=== PATIENT | female | born 1960 | race Caucasian/White ===

== ENCOUNTER → 2016-12-04 | Outpatient (CLI) | payer BC ==
--- NOTE | 2016-12-04 10:30 | MM ---
Reason for exam: additional evaluation requested from prior study. Last mammogram was performed 5 months ago. History: Patient is postmenopausal and history of other cancer. US discontinued breast core RT of the right breast, August 22, 2016. Took estrogen for 9 years 1 month beginning at age 40. Took progesterone for 9 years 1 month beginning at age 40. Physical Findings: Nurse did not find any significant physical abnormalities on exam. MG 3D Diag Mammo W/Cad RT CC and MLO view(s) were taken of the right breast. Prior study comparison: July 15, 2016, bilateral MG 3d diag mammo w/cad ANNA. September 14, 2015, bilateral MG 3d screening mammo w/cad. July 18, 2014, bilateral MG screening mammo w CAD. June 21, 2013, bilateral digital screening mammo w/CAD. There are scattered fibroglandular densities. There is chronic nodularity in the right breast. Some nodularity in the subareolar right MLO view is circumscribed and appears more prominent but has overall benign features. These results were verbally communicated with the patient and result sheet given to the patient on 12/04/16. ASSESSMENT: Incomplete: need additional imaging evaluation, BI-RAD 0 RECOMMENDATION: Ultrasound of the right breast. NOMAN
--- NOTE | 2016-12-04 10:33 | USB ---
Reason for exam: follow-up at short interval from prior study. History: Patient is postmenopausal and history of other cancer. US discontinued breast core RT of the right breast, August 22, 2016. Took estrogen for 9 years 1 month beginning at age 40. Took progesterone for 9 years 1 month beginning at age 40. US Breast RT Right breast ultrasound demonstrates a 1.4 x 1.5 x 0.7cm lipoma at 5 o'clock versus 1.4 x 1.5 x 0.8cm, stable and a 0.7 x 0.7 x 0.4cm probable node, hypoechoic with vascular hilum at 10 o'clock versus 7 x 7 x 5mm previously, probably corresponding to the mammographic lymph node. A 6 month follow up is recommended. These results were verbally communicated with the patient and result sheet given to the patient on 12/04/16. ASSESSMENT: Probably benign, BI-RAD 3 RECOMMENDATION: Follow-up diagnostic mammogram of both breasts in 6 months.
== END | disposition home or self-care (01) ==
LOC: RADMAMWWP 08:51
PROVIDERS: ATTEND Obstetrics & Gynecology
DX: R92.8 Other abnormal and inconclusive findings on diagnostic imaging of breast (principal)
CPT/HCPCS: 76641; G0206; G0279

== ENCOUNTER → 2017-06-19 | Outpatient (CLI) | payer BC ==
--- NOTE | 2017-06-19 14:33 | MM ---
Reason for exam: follow-up at short interval from prior study. Last mammogram was performed 7 months ago. History: Patient is postmenopausal and history of other cancer. US discontinued breast core RT of the right breast, August 22, 2016. Took estrogen for 9 years 1 month beginning at age 40. Took progesterone for 9 years 1 month beginning at age 40. Physical Findings: Nurse did not find any significant physical abnormalities on exam. MG 3D Diag Mammo W/Cad ANNA Bilateral CC and MLO view(s) were taken. Prior study comparison: December 04, 2016, right breast MG 3d diag mammo w/cad RT. July 15, 2016, bilateral MG 3d diag mammo w/cad ANNA. The breast tissue is heterogeneously dense. This may lower the sensitivity of mammography. Prominent ducts right retroareolar region. No suspicious nodules. No significant new findings when compared with previous films. These results were verbally communicated with the patient and result sheet given to the patient on 06/19/17. ASSESSMENT: Benign, BI-RAD 2 RECOMMENDATION: Routine screening mammogram of both breasts in 1 year.
== END | disposition home or self-care (01) ==
LOC: RADMAMWWP 13:14
PROVIDERS: ATTEND Obstetrics & Gynecology
DX: R92.8 Other abnormal and inconclusive findings on diagnostic imaging of breast (principal)
CPT/HCPCS: G0204; G0279

== ENCOUNTER → 2018-06-22 | Outpatient (CLI) | payer BC ==
--- NOTE | 2018-06-22 14:29 | US ---
EXAMINATION TYPE: US thyroid st tissue head/neck DATE OF EXAM: 06/22/2018 COMPARISON: US 07/15/2016 CLINICAL HISTORY: E04.1 Thyroid nodule. GLAND SIZE: Right Lobe: 3.3 x 1.1 x 0.9 cm Overall Parenchyma: homogenous Left Lobe: 3.3 x 0.8 x 1.1 cm Overall Parenchyma: homogeneous Isthmus Thickness: 0.3 cm NODULES RIGHT: # of nodules measured on right: 0 LEFT: # of nodules measured on left: 0 ISTHMUS: # of nodules measured in the isthmus: 0 Bilateral neck scanned, no evidence of lymphadenopathy. IMPRESSION: No distinct abnormalities appreciated at this time.
== END | disposition home or self-care (01) ==
LOC: RADUSWWP 13:08
PROVIDERS: ATTEND Family Medicine
DX: E04.1 Nontoxic single thyroid nodule (principal)
CPT/HCPCS: 76536

== ENCOUNTER → 2018-06-23 | Outpatient (CLI) | payer BC ==
--- NOTE | 2018-06-25 09:27 | MM ---
Reason for exam: screening (asymptomatic). Last mammogram was performed 1 year ago. History: Patient is postmenopausal and history of other cancer. US discontinued breast core RT of the right breast, August 22, 2016. Took estrogen for 9 years 1 month beginning at age 40. Took progesterone for 9 years 1 month beginning at age 40. Physical Findings: A clinical breast exam by your physician is recommended on an annual basis and results should be correlated with mammographic findings. MG 3D Screening Mammo W/Cad Bilateral CC and MLO view(s) were taken. Prior study comparison: June 19, 2017, bilateral MG 3d diag mammo w/cad ANNA. December 04, 2016, right breast MG 3d diag mammo w/cad RT. The breast tissue is heterogeneously dense. This may lower the sensitivity of mammography. No significant changes when compared with prior studies. ASSESSMENT: Benign, BI-RAD 2 RECOMMENDATION: Routine screening mammogram of both breasts in 1 year.
== END | disposition home or self-care (01) ==
LOC: RADMAMWWP 16:31
PROVIDERS: ATTEND Obstetrics & Gynecology
DX: Z12.31 Encounter for screening mammogram for malignant neoplasm of breast (principal)
CPT/HCPCS: 77063; 77067

== ENCOUNTER 2018-08-28 13:17 | Emergency (ER) | payer OTHER, BC ==
[2018-08-28 13:32] VITALS: PULSE 79; RESP 18; TEMP 98.3
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
[2018-08-28 16:10] VITALS: BP 164/89
== END 2018-08-28 16:17 | disposition home or self-care (01) ==
LOC: EC 13:17
DX: M25.512 Pain in left shoulder (principal); M25.522 Pain in left elbow; M79.602 Pain in left arm; G25.81 Restless legs syndrome; F32.9 Major depressive disorder, single episode, unspecified; F41.9 Anxiety disorder, unspecified; Z87.891 Personal history of nicotine dependence; Z79.899 Other long term (current) drug therapy; V43.52XA Car driver injured in collision with other type car in traffic accident, initial encounter; Y93.89 Activity, other specified; Y92.410 Unspecified street and highway as the place of occurrence of the external cause
CPT/HCPCS: 71045; 99284

== ENCOUNTER → 2019-10-13 | Outpatient (CLI) | payer BC ==
--- NOTE | 2019-10-13 14:42 | BD ---
EXAMINATION TYPE: Axial Bone Density DATE OF EXAM: 10/13/2019 COMPARISON: DEXA bone scan July 15, 2016. CLINICAL HISTORY: Postmenopausal female. Height: 5 FT 3 1/2 IN Weight: 206 FRAX RISK QUESTIONS: Alcohol (3 or more units per day): NO Family History (Parent hip fracture): NO Glucocorticoids (More than 3mos): NO (Ex: prednisone, prednisolone, methylprednisolone, dexamethasone, and hydrocortisone). History of Fracture in Adulthood: NO Secondary Osteoporosis: 1. Type 1 Diabetes: NO 2. Hyperthyroidism: NO 3. Menopause before 45: YES 4. Malnutrition: NO 5. Chronic liver disease: NO Rheumatoid Arthritis: NO Current Tobacco Use: NO RISK FACTORS HISTORY OF: Postmenopausal woman: AGE 41 Take estrogen and/or progesterone medications: TOOK HRT FROM AGE [age] NO LONGER TAKES MEDICATIONS: Additional Medications: EFFEXOR, XANAX, AMBIEN, FLEXERIL REQUIP Additional History: EXAM MEASUREMENTS: Bone mineral densitometry was performed using the [email or web address] System. Bone mineral density as measured about the Lumbar spine is: ----- L1-L4(G/cm2): 1.071 T Score Values are as follows: ----- L2: -0.4 ----- L3: -0.4 ----- L4: -1.3 ----- L1-L4: -0.9 Bone mineral density has: DECREASED -3.5 % since study of: 2015 Bone mineral density about the R hip (g/cm2): 0.945 Bone mineral density about the L hip (g/cm2): 0.903 T Score values are as follows: -----R Neck: -0.7 -----L Neck: -1.0 -----R Total: 0.5 -----L Total: 0.9 Bone mineral density has: DECREASED -0.2 % since study of: 2015 IMPRESSION: Normal (Values between +1 and -1 indicate normal bone mass) range remains present. Consider repeatin g this study in 5 years or sooner if there is some new clinical indication. NOTE: T-SCORE=SD OF THE YOUNG ADULT MEAN.
--- NOTE | 2019-10-14 13:29 | MM ---
Reason for exam: screening (asymptomatic). Last mammogram was performed 1 year and 4 months ago. History: Patient is postmenopausal and history of other cancer. US discontinued breast core RT of the right breast, August 22, 2016. Took estrogen for 9 years 1 month beginning at age 40. Took progesterone for 9 years 1 month beginning at age 40. Physical Findings: A clinical breast exam by your physician is recommended on an annual basis and results should be correlated with mammographic findings. MG 3D Screening Mammo W/Cad Bilateral CC and MLO view(s) were taken. Prior study comparison: June 23, 2018, bilateral MG 3d screening mammo w/cad. June 19, 2017, bilateral MG 3d diag mammo w/cad ANNA. There are scattered fibroglandular densities. No suspicious abnormality. No significant changes when compared with prior studies. ASSESSMENT: Negative, BI-RAD 1 RECOMMENDATION: Routine screening mammogram of both breasts in 1 year.
== END | disposition home or self-care (01) ==
LOC: RADMAMWWP 13:07
PROVIDERS: ATTEND Family Medicine
DX: Z12.39 Encounter for other screening for malignant neoplasm of breast (principal); Z78.0 Asymptomatic menopausal state
CPT/HCPCS: 77063; 77067; 77080

== ENCOUNTER → 2020-06-29 | Outpatient (CLI) | payer BC ==
--- NOTE | 2020-06-29 13:51 | P.STRESS ---
- Stress Test Note Stress Test Results/Findings: Exam Performed: stress echo exercise Exam Date: 06/29/20 Reason for Exam: Chest pain Height: 5 ft 4 in Weight: 216 kg Protocol: Stress Echo Stage: 3 Duration of Exercise: 7:43 Resting Heart Rate: 90 Resting Blood Pressure: 139/54 Maximum Achieved Heart Rate: 150 Maximum Achieved Blood Pressure: 203/74 85% PMHR: 134 100% PMHR: 158 METS: 8.9 Technologist Comment: Stress Test Results/Findings: Patient underwent exercise stress echo with a Thai protocol treadmill stress test. Patient exercised into Stage 3 for a total of 7 minutes and 43 seconds reaching a total of 8.9 METS. Patient's maximum heart rate was 150 which represented 95 % age-predicted maximum heart rate. Stress EKG portion: At baseline patient's EKG showed normal sinus rhythm, normal axis, nonspecific T-wave flattening in aVL, mild ST depressions in inferior leads. At peak exercise, EKG showed accentuation of inferior ST depressions with [address] depressions in 3 and aVF, [address] depressions in V5 V6. Stress echo portion: 2-D echocardiogram was performed in the parasternal long, personal short, apical 2 and apical four-chamber views at rest, peak exercise and in recovery. At baseline, echocardiogram showed left ventricular ejection fraction 55 % without wall motion abnormalities. With peak exercise, echocardiogram shows improvement in left ventricular ejection fraction, increase contractility, decrease in left ventricular dimension without wall motion abnormalities consistent with a normal response to exercise. Conclusions: 1. Nonspecific EKG response and normal echo response to exercise without evidence of inducible ischemia. 2. Fair exercise capacity.
== END | disposition home or self-care (01) ==
LOC: RADNMMAIN 11:06
PROVIDERS: ATTEND Family Medicine
DX: R07.89 Other chest pain (principal)
CPT/HCPCS: 93351

== ENCOUNTER → 2021-01-31 | Outpatient (CLI) | payer BC ==
--- NOTE | 2021-01-31 12:24 | XR ---
EXAMINATION TYPE: XR calcaneus 2V BILATERAL DATE OF EXAM: 01/31/2021 COMPARISON: None HISTORY: Bilateral heel pain greater on right TECHNIQUE: Calcanei are examined in 2 projections each FINDINGS: Left calcaneus: Plantar and Achilles tendon calcaneal heel spurs are present. Boehler's angle is pres erved. No acute fracture or dislocation is evident. No suspicious cortical erosions are evident. Right calcaneus: There is a large Achilles tendon calcaneal heel spur. Small plantar calcaneal heel s pur may be present. Boehler's angle is preserved. Joint spaces are preserved. No acute fracture or di slocation is evident. No cortical erosions are evident. IMPRESSION: 1. Bilateral calcaneal heel spurs discussed above
== END | disposition home or self-care (01) ==
LOC: RADXRMAIN 11:42
PROVIDERS: ATTEND Nurse Practitioner Family
DX: M77.31 Calcaneal spur, right foot (principal); M77.32 Calcaneal spur, left foot

== ENCOUNTER 2021-02-01 14:56 | Emergency (ER) | payer BC ==
[2021-02-01 15:43] LABS: ALT 37 U/L (4-34); AST 42 U/L (14-36); African American GFR (CKD) >90 (>60 ml/min/1.73 sqM); Albumin 4.5 g/dL (3.5-5.0); Alkaline Phosphatase 89 U/L (38-126); Anion Gap 9 mmol/L; Blood Urea Nitrogen 7 mg/dL (7-17); Calcium 9.4 mg/dL (8.4-10.2); Carbon Dioxide 25 mmol/L (22-30); Chloride 103 mmol/L (98-107); Glucose 107 mg/dL (74-99); Magnesium 2.1 mg/dL (1.6-2.3); Non-African American GFR(CKD) >90 (>60 ml/min/1.73 sqM); Potassium 3.7 mmol/L (3.5-5.1); Sodium 137 mmol/L (137-145); Total Bilirubin 0.5 mg/dL (0.2-1.3); Total Protein 7.5 g/dL (6.3-8.2)
[2021-02-01 15:46] LABS: D-Dimer 0.31 mg/L FEU (<0.60); INR 0.9 (<1.2); Prothrombin Time 10.1 sec (9.0-12.0)
--- NOTE | 2021-02-01 15:53 | XR ---
EXAMINATION TYPE: XR chest 2V DATE OF EXAM: 02/01/2021 COMPARISON: 08/28/2018 HISTORY: 60-year-old female with chest pain TECHNIQUE: PA and lateral views FINDINGS: The cardiomediastinal silhouette, aorta, and pulmonary vasculature are within normal limits. Mild int erstitial prominence as a chronic appearance. No consolidation or pleural effusion. IMPRESSION: Chronic changes without acute cardiopulmonary process.
[2021-02-01 16:07] LABS: Basophils % (A) 1 %; Eosinophils # (A) 0.1 k/uL (0-0.7); Eosinophils % (A) 1 %; HCT 45.8 % (34.0-46.0); HGB 15.8 gm/dL (11.4-16.0); Lymphocytes % (A) 33 %; MCH 29.3 pg (25.0-35.0); MCHC 34.5 g/dL (31.0-37.0); MCV 84.8 fL (80.0-100.0); Mean Platelet Volume 7.5; Monocytes # (A) 0.5 k/uL (0-1.0); Monocytes % (A) 8 %; Neutrophils # (A) 3.5 k/uL (1.3-7.7); Neutrophils % (A) 56 %; Platelet Count 242 k/uL (150-450); RBC 5.41 m/uL (3.80-5.40); RDW 13.9 % (11.5-15.5); WBC 6.2 k/uL (3.8-10.6)
--- NOTE | 2021-02-01 16:14 | ED ---
General Adult HPI - General Chief complaint: Chest Pain Stated complaint: Chest Pain, chest tightness, Time Seen by Provider: 02/01/21 15:05 Source: patient, RN notes reviewed, old records reviewed Mode of arrival: wheelchair Limitations: no limitations - History of Present Illness Initial comments: 60-year-old female presenting with an episode of right-sided chest pain with associated jaw pain and right arm pain. Patient has no previous history of c oronary artery disease. No history of DVT or PE. Symptoms have resolved at the time my evaluation. This episode lasted approximately 15 minutes 1 hour prior to arrival. Patient denies associated vomiting or diaphoresis. She has been otherwise well. No cough or fever. - Related Data Home Medications Medication Instructions Recorded Confirmed Venlafaxine HCl [Effexor XR] 150 mg PO HS 08/10/16 02/01/21 ALPRAZolam [Xanax] 0.5 mg PO TID 02/01/21 02/01/21 Albuterol Sulfate [Ventolin HFA] 2 puff INHALATION RT-Q6H PRN 02/01/21 02/01/21 Cyclobenzaprine [Flexeril] 10 mg PO HS 02/01/21 02/01/21 Ibuprofen [Advil] 400 mg PO Q8HR PRN 02/01/21 02/01/21 Zolpidem [Ambien] 10 mg PO HS 02/01/21 02/01/21 rOPINIRole HCL [Requip] 1 mg PO HS 02/01/21 02/01/21 Allergies Allergy/AdvReac Type Severity Reaction Status Date / Time No Known Allergies Allergy Verified 02/01/21 16:43 Review of Systems ROS Statement: Those systems with pertinent positive or pertinent negative responses have been documented in the HPI. ROS Other: All systems not noted in ROS Statement are negative. Past Medical History Past Medical History: No Reported History Additional Past Medical History / Comment(s): CURRENT: LEFT LOWER ABD PAIN. Restless leg syndrome. History of Any Multi-Drug Resistant Organisms: None Reported Past Surgical History: Section, Cholecystectomy Past Anesthesia/Blood Transfusion Reactions: Motion Sickness Past Psychological History: Anxiety, Depression Smoking Status: Former smoker Past Alcohol Use History: None Reported Past Drug Use History: None Reported General Exam Limitations: no limitations General appearance: alert, in no apparent distress Head exam: Present: atraumatic, normocephalic Eye exam: Present: normal appearance, PERRL ENT exam: Present: normal exam, normal oropharynx Neck exam: Absent: normal inspection, tenderness, meningismus Respiratory exam: Present: normal lung sounds bilaterally. Absent: respiratory distress, wheezes, rales Cardiovascular Exam: Present: regular rate, normal rhythm GI/Abdominal exam: Present: soft. Absent: distended, tenderness, guarding, rebound Extremities exam: Present: normal inspection, normal capillary refill. Absent: pedal edema, calf tenderness Neurological exam: Present: alert, oriented X3, CN II-XII intact. Absent: motor sensory deficit Psychiatric exam: Present: normal affect, normal mood Skin exam: Present: warm, dry, intact. Absent: cyanosis, diaphoretic Course Vital Signs 02/01/21 02/01/21 14:58 17:37 Pulse Rate 103 H 90 Respiratory 16 16 Rate Blood Pressure 163/114 131/100 O2 Sat by Pulse 99 96 Oximetry - Reevaluation(s) Reevaluation #1: 02/01/21 18:17 No further pain at all while in the emergency department. EKG Findings - EKG Comments: EKG Findings:: EKG: Normal sinus rhythm, rate of 88, FL interval 152, QRS duration 80, QTC 484, no ST segment elevation. Medical Decision Making - Medical Decision Making 60-year-old female with an episode of chest pain, right-sided with some radiation to the neck. Pain resolved prior to arrival. This was not a sharp pain. I did perform a chest x-ray which was interpreted as no acute process. EKG sinus rhythm without ST segment elevation. Normal CBC, CMP showing very minimal elevation in AST and ALTs, negative d-dimer, negative troponin. I did discuss observation versus home with this patient and she prefers to be discharged home I did repeat a troponin which was again negative. Patient's giv en strict return parameters and will follow up with both her primary care physician and given referral to cardiology. She will return if any worsening or changing symptoms. - Lab Data Result diagrams: 02/01/21 15:11 02/01/21 15:11 Lab Results 02/01/21 02/01/21 02/01/21 Range/Units 15:11 15:11 15:11 WBC 6.2 (3.8-10.6) k/uL RBC 5.41 H (3.80-5.40) m/uL Hgb 15.8 (11.4-16.0) gm/dL Hct 45.8 (34.0-46.0) % MCV 84.8 (80.0-100.0) fL MCH 29.3 (25.0-35.0) pg MCHC 34.5 (31.0-37.0) g/dL RDW 13.9 (11.5-15.5) % Plt Count 242 (150-450) k/uL MPV 7.5 Neutrophils % 56 % Lymphocytes % 33 % Monocytes % 8 % Eosinophils % 1 % Basophils % 1 % Neutrophils # 3.5 (1.3-7.7) k/uL Lymphocytes # 2.0 (1.0-4.8) k/uL Monocytes # 0.5 (0-1.0) k/uL Eosinophils # 0.1 (0-0.7) k/uL Basophils # 0.0 (0-0.2) k/uL PT 10.1 (9.0-12.0) sec INR 0.9 (<1.2) APTT 23.0 (22.0-30.0) sec D-Dimer 0.31 (<0.60) mg/L FEU Sodium 137 (137-145) mmol/L Potassium 3.7 (3.5-5.1) mmol/L Chloride 103 (98-107) mmol/L Carbon Dioxide 25 (22-30) mmol/L Anion Gap 9 mmol/L BUN 7 (7-17) mg/dL Creatinine 0.57 (0.52-1.04) mg/dL Est GFR (CKD-EPI)AfAm >90 (>60 ml/min/1.73 sqM) Est GFR (CKD-EPI)NonAf >90 (>60 ml/min/1.73 sqM) Glucose 107 H (74-99) mg/dL Calcium 9.4 (8.4-10.2) mg/dL Magnesium 2.1 (1.6-2.3) mg/dL Total Bilirubin 0.5 (0.2-1.3) mg/dL AST 42 H (14-36) U/L ALT 37 H (4-34) U/L Alkaline Phosphatase 89 (38-126) U/L Troponin I (0.000-0.034) ng/mL NT-Pro-B Natriuret Pep pg/mL Total Protein 7.5 (6.3-8.2) g/dL Albumin 4.5 (3.5-5.0) g/dL 02/01/21 02/01/21 02/01/21 Range/Units 15:11 15:11 17:30 WBC (3.8-10.6) k/uL RBC (3.80-5.40) m/uL Hgb (11.4-16.0) gm/dL Hct (34.0-46.0) % MCV (80.0-100.0) fL MCH (25.0-35.0) pg MCHC (31.0-37.0) g/dL RDW (11.5-15.5) % Plt Count (150-450) k/uL MPV Neutrophils % % Lymphocytes % % Monocytes % % Eosinophils % % Basophils % % Neutrophils # (1.3-7.7) k/uL Lymphocytes # (1.0-4.8) k/uL Monocytes # (0-1.0) k/uL Eosinophils # (0-0.7) k/uL Basophils # (0-0.2) k/uL PT (9.0-12.0) sec INR (<1.2) APTT (22.0-30.0) sec D-Dimer (<0.60) mg/L FEU Sodium (137-145) mmol/L Potassium (3.5-5.1) mmol/L Chloride (98-107) mmol/L Carbon Dioxide (22-30) mmol/L Anion Gap mmol/L BUN (7-17) mg/dL Creatinine (0.52-1.04) mg/dL Est GFR (CKD-EPI)AfAm (>60 ml/min/1.73 sqM) Est GFR (CKD-EPI)NonAf (>60 ml/min/1.73 sqM) Glucose (74-99) mg/dL Calcium (8.4-10.2) mg/dL Magnesium (1.6-2.3) mg/dL Total Bilirubin (0.2-1.3) mg/dL AST (14-36) U/L ALT (4-34) U/L Alkaline Phosphatase (38-126) U/L Troponin I <0.012 <0.012 (0.000-0.034) ng/mL NT-Pro-B Natriuret Pep 32 pg/mL Total Protein (6.3-8.2) g/dL Albumin (3.5-5.0) g/dL Disposition Clinical Impression: Chest pain Disposition: HOME SELF-CARE Condition: Good Instructions (If sedation given, give patient instructions): Chest Pain (ED) Is patient prescribed a controlled substance at d/c from ED?: No Referrals: Pradip Hopper MD [Primary Care Provider] - 1-2 days Gus Jean Baptiste MD [STAFF PHYSICIAN] - 1-2 days Time of Disposition: 18:19
[2021-02-01 18:39] VITALS: BP 144/79; PULSE 94; RESP 18; TEMP 98.3
== END 2021-02-01 18:39 | disposition home or self-care (01) ==
LOC: EC 14:56
DX: R07.89 Other chest pain (principal); M79.601 Pain in right arm; R68.84 Jaw pain; F41.9 Anxiety disorder, unspecified; F32.9 Major depressive disorder, single episode, unspecified; G25.81 Restless legs syndrome; Z87.891 Personal history of nicotine dependence; Z79.899 Other long term (current) drug therapy; Z79.1 Long term (current) use of non-steroidal anti-inflammatories (NSAID)
CPT/HCPCS: 36415; 71046; 80053; 83735; 83880; 84484; 85025; 85379; 85610; 85730; 93005; 99285

== ENCOUNTER → 2021-03-29 | Outpatient (CLI) | payer BC ==
--- NOTE | 2021-04-02 08:00 | MM ---
Reason for exam: screening (asymptomatic). Last mammogram was performed 1 year and 6 months ago. History: Patient is postmenopausal and history of other cancer. US discontinued breast core RT of the right breast, August 22, 2016. Took estrogen for 9 years 1 month beginning at age 40. Took progesterone for 9 years 1 month beginning at age 40. Physical Findings: A clinical breast exam by your physician is recommended on an annual basis and results should be correlated with mammographic findings. MG 3D Screening Mammo W/Cad Bilateral CC and MLO view(s) were taken. Prior study comparison: October 13, 2019, bilateral MG 3d screening mammo w/cad. June 23, 2018, bilateral MG 3d screening mammo w/cad. Left new nodule upper outer midde depth. Left nodule medial breast middle depth. ASSESSMENT: Incomplete: need additional imaging evaluation, BI-RAD 0 RECOMMENDATION: Special view mammogram of the left breast. If lesion persists on supplemental views, image directed ultrasound is recommended. [facility] will attempt to contact patient to return for supplemental views and ultrasound if indicated.
== END | disposition home or self-care (01) ==
LOC: RADMAMWWP 14:37
PROVIDERS: ATTEND Family Medicine
DX: Z12.31 Encounter for screening mammogram for malignant neoplasm of breast (principal); Z78.0 Asymptomatic menopausal state
CPT/HCPCS: 77063; 77067

== ENCOUNTER → 2021-04-10 | Outpatient (CLI) | payer BC ==
--- NOTE | 2021-04-10 16:02 | USB ---
EXAMINATION TYPE: US breast workup limited LT DATE OF EXAM: 04/10/2021 COMPARISON: Mammogram same date CLINICAL HISTORY: R92.8 ABNORMAL MAMMOGRAM. Targeted left breast ultrasound was performed from 1:00 through 6:00 and 9:00 through 12:00 and in th e retroareolar region. In the left breast at 2:00, there is a 0.8 x 0.6 x 0.3 cm cluster of cysts which corresponds well in size, location and morphology to the left outer asymmetry on mammogram. An incidental simple cyst is also noted in the left breast at 3:00. There is no definite sonographic correlate for the left inner upper asymmetry on mammogram and follow -up left diagnostic mammogram is recommended in 6 months. IMPRESSION: Follow-up left diagnostic mammogram is recommended in 6 months for the left upper inner asymmetry. BI-RADS 3, probably benign.
--- NOTE | 2021-04-12 13:35 | MM ---
Reason for exam: additional evaluation requested from abnormal screening. Last mammogram was performed less than 1 month ago. History: Patient is postmenopausal and history of other cancer. US discontinued breast core RT of the right breast, August 22, 2016. Took estrogen for 9 years 1 month beginning at age 40. Took progesterone for 9 years 1 month beginning at age 40. Physical Findings: Nurse did not find any significant physical abnormalities on exam. MG 3D Work Up W/Cad LT CC with magnification, MLO with magnification, and LM view(s) were taken of the left breast. Prior study comparison: March 29, 2021, bilateral MG 3d screening mammo w/cad. October 13, 2019, bilateral MG 3d screening mammo w/cad. There are scattered fibroglandular densities. Left upper inner asymmetry middle depth. Left lower outer middle depth asymmetry. These results were verbally communicated with the patient and result sheet given to the patient on 04/10/21. ASSESSMENT: Incomplete: need additional imaging evaluation, BI-RAD 0 RECOMMENDATION: Ultrasound of the left breast.
== END | disposition home or self-care (01) ==
LOC: RADMAMWWP 13:38
PROVIDERS: ATTEND Family Medicine
DX: N64.89 Other specified disorders of breast (principal); Z78.0 Asymptomatic menopausal state
CPT/HCPCS: 77061; 77065

== ENCOUNTER 2021-07-16 11:31 | Observation (INO) | payer BC ==
[2021-07-16] MEDS ORDERED: ASPIRIN 81 MG PO STA (13:04)
[2021-07-16] MEDS ORDERED: NITROGLYCERIN OINT 1 INCH/GM PACKET TOPICAL STA (13:04)
--- NOTE | 2021-07-16 13:06 | ED ---
General Adult HPI - General Chief complaint: Chest Pain Stated complaint: Chest pain Time Seen by Provider: 07/16/21 11:55 Source: patient, RN notes reviewed, old records reviewed Mode of arrival: wheelchair Limitations: no limitations - History of Present Illness Initial comments: This is a 61-year-old female who presents emergency Department complaining of chest pressure. Patient states she woke up this morning between 3 and 4:00 and a chest pressure. Patient states she might have been a little short of breath but not bad. Patient denies any radiation of the pain. Patient denies any diaphoretic episodes. Patient states she was recently in the hospital emergency Department for chest pain but then went home and didn't follow up. Patient st ates she has a brother who had a heart attack. Patient denies any smoking patient denies diabetes hypertension high cholesterol. Patient denies abdominal pain patient denies nausea vomiting or diarrhea. Patient denies any recent fever chills or cough. - Related Data Home Medications Medication Instructions Recorded Confirmed Venlafaxine HCl [Effexor XR] 150 mg PO HS 08/10/16 07/16/21 ALPRAZolam [Xanax] 0.5 mg PO BID 02/01/21 07/16/21 Albuterol Sulfate [Ventolin HFA] 2 puff INHALATION RT-Q6H PRN 02/01/21 07/16/21 Cyclobenzaprine [Flexeril] 20 mg PO HS 02/01/21 07/16/21 Zolpidem [Ambien] 10 mg PO HS 02/01/21 07/16/21 rOPINIRole HCL [Requip] 1 mg PO HS 02/01/21 07/16/21 ALPRAZolam [Xanax] 0.5 mg PO PC-LUNCH PRN 07/16/21 07/16/21 Benzonatate [Tessalon Perles] 100 mg PO TID PRN 07/16/21 07/16/21 Cetirizine HCl [Zyrtec] 10 mg PO HS PRN 07/16/21 07/16/21 Cholecalciferol [Vitamin D3 (25 25 mcg PO DAILY 07/16/21 07/16/21 Mcg = 1000 Iu)] Cyanocobalamin (Vitamin B-12) 1,000 mcg PO DAILY 07/16/21 07/16/21 [Vitamin B-12] Fluticasone Nasal [place] [Flonase 1 spray EA NOSTRIL DAILY PRN 07/16/21 07/16/21 Nasal [place]] Garlic 1 tab PO DAILY 07/16/21 07/16/21 Magnesium 250 mg PO DAILY 07/16/21 07/16/21 Meclizine HCl 12.5 mg PO QID 07/16/21 07/16/21 Multivit with Calcium,Iron,Min 1 tab PO DAILY 07/16/21 07/16/21 [Women's Multivitamin] Vitamin C/Biotin [Hair, Skin and 1 tab PO DAILY 07/16/21 07/16/21 Nails Chew] Allergies Allergy/AdvReac Type Severity Reaction Status Date / Time No Known Allergies Allergy Verified 07/16/21 14:13 Review of Systems ROS Statement: Those systems with pertinent positive or pertinent negative responses have been documented in the HPI. ROS Other: All systems not noted in ROS Statement are negative. Past Medical History Past Medical History: No Reported History Additional Past Medical History / Comment(s): CURRENT: LEFT LOWER ABD PAIN. Restless leg syndrome. History of Any Multi-Drug Resistant Organisms: None Reported Past Surgical History: Section, Cholecystectomy Past Anesthesia/Blood Transfusion Reactions: Motion Sickness Past Psychological History: Anxiety, Depression Smoking Status: Former smoker Past Alcohol Use History: None Reported Past Drug Use History: None Reported General Exam - General Exam Comments Initial Comments: GENERAL: Patient is well-developed and well-nourished. Patient is nontoxic and well- hydrated and is in mild distress. ENT: Neck is soft and supple. No significant lymphadenopathy is noted. Oropharynx is clear. Moist mucous membranes. Neck has full range of motion without eliciting any pain. EYES: The sclera were anicteric and conjunctiva were pink and moist. Extraocular movements were intact and pupils were equal round and reactive to light. Eyelids were unremarkable. PULMONARY: Unlabored respirations. Good breath sounds bilaterally. No audible rales rhonchi or wheezing was noted. CARDIOVASCULAR: There is a regular rate and rhythm without any murmurs gallops or rubs. ABDOMEN: Soft and nontender with normal bowel sounds. SKIN: Skin is clear with no lesions or rashes and otherwise unremarkable. NEUROLOGIC: Patient is alert and oriented x3. Cranial nerves II through XII are grossly intact. Motor and sensory are also intact. Normal speech, volume and content. Symmetrical smile. MUSCULOSKELETAL: Normal extremities with adequate strength and full range of motion. No lower extremity swelling or edema. No calf tenderness. LYMPHATICS: No significant lymphadenopathy is noted PSYCHIATRIC: Normal psychiatric evaluation. Limitations: no limitations Course Vital Signs 07/16/21 07/16/21 11:48 13:17 Temperature 98.2 F Pulse Rate 90 78 Respiratory 18 16 Rate Blood Pressure 126/77 148/98 O2 Sat by Pulse 97 95 Oximetry Medical Decision Making - Medical Decision Making EKG shows normal sinus rhythm at 81 bpm ID interval 248 QRSs 84 Q-T intervals 42 QTC is 466 per patient's EKG shows no ST segment elevation or depression. Chest x-ray shows no acute abnormality. Patient continued to have a little chest discomfort throughout her ED stay. I spoke with Dr. Hopper he agreed to admit the patient and the patient wrote admitting orders. I consult cardiology. - Lab Data Result diagrams: 07/16/21 13:17 07/16/21 13:17 Lab Results 07/16/21 07/16/21 07/16/21 Range/Units 13:17 13:17 13:17 WBC 8.3 (3.8-10.6) k/uL RBC 4.91 (3.80-5.40) m/uL Hgb 14.6 (11.4-16.0) gm/dL Hct 42.8 (34.0-46.0) % MCV 87.2 (80.0-100.0) fL MCH 29.7 (25.0-35.0) pg MCHC 34.1 (31.0-37.0) g/dL RDW 13.4 (11.5-15.5) % Plt Count 343 (150-450) k/uL MPV 7.7 Neutrophils % 59 % Lymphocytes % 32 % Monocytes % 4 % Eosinophils % 4 % Basophils % 1 % Neutrophils # 4.8 (1.3-7.7) k/uL Lymphocytes # 2.6 (1.0-4.8) k/uL Monocytes # 0.3 (0-1.0) k/uL Eosinophils # 0.3 (0-0.7) k/uL Basophils # 0.1 (0-0.2) k/uL PT 9.9 (9.0-12.0) sec INR 0.9 (<1.2) APTT 22.4 (22.0-30.0) sec Sodium 138 (137-145) mmol/L Potassium 4.0 (3.5-5.1) mmol/L Chloride 105 (98-107) mmol/L Carbon Dioxide 24 (22-30) mmol/L Anion Gap 9 mmol/L BUN 8 (7-17) mg/dL Creatinine 0.57 (0.52-1.04) mg/dL Est GFR (CKD-EPI)AfAm >90 (>60 ml/min/1.73 sqM) Est GFR (CKD-EPI)NonAf >90 (>60 ml/min/1.73 sqM) Glucose 122 H (74-99) mg/dL Calcium 9.3 (8.4-10.2) mg/dL Magnesium 2.2 (1.6-2.3) mg/dL Total Bilirubin 0.5 (0.2-1.3) mg/dL AST 34 (14-36) U/L ALT 30 (4-34) U/L Alkaline Phosphatase 93 (38-126) U/L Troponin I (0.000-0.034) ng/mL Total Protein 7.2 (6.3-8.2) g/dL Albumin 4.2 (3.5-5.0) g/dL SARS-CoV-2 (PCR) (Not Detectd) 07/16/21 07/16/21 Range/Units 13:17 13:17 WBC (3.8-10.6) k/uL RBC (3.80-5.40) m/uL Hgb (11.4-16.0) gm/dL Hct (34.0-46.0) % MCV (80.0-100.0) fL MCH (25.0-35.0) pg MCHC (31.0-37.0) g/dL RDW (11.5-15.5) % Plt Count (150-450) k/uL MPV Neutrophils % % Lymphocytes % % Monocytes % % Eosinophils % % Basophils % % Neutrophils # (1.3-7.7) k/uL Lymphocytes # (1.0-4.8) k/uL Monocytes # (0-1.0) k/uL Eosinophils # (0-0.7) k/uL Basophils # (0-0.2) k/uL PT (9.0-12.0) sec INR (<1.2) APTT (22.0-30.0) sec Sodium (137-145) mmol/L Potassium (3.5-5.1) mmol/L Chloride (98-107) mmol/L Carbon Dioxide (22-30) mmol/L Anion Gap mmol/L BUN (7-17) mg/dL Creatinine (0.52-1.04) mg/dL Est GFR (CKD-EPI)AfAm (>60 ml/min/1.73 sqM) Est GFR (CKD-EPI)NonAf (>60 ml/min/1.73 sqM) Glucose (74-99) mg/dL Calcium (8.4-10.2) mg/dL Magnesium (1.6-2.3) mg/dL Total Bilirubin (0.2-1.3) mg/dL AST (14-36) U/L ALT (4-34) U/L Alkaline Phosphatase (38-126) U/L Troponin I <0.012 (0.000-0.034) ng/mL Total Protein (6.3-8.2) g/dL Albumin (3.5-5.0) g/dL SARS-CoV-2 (PCR) Not Detected (Not Detectd) Disposition Clinical Impression: Chest pain Disposition: ADMITTED IP TO THIS [facility] Referrals: Pradip Hopper MD [Primary Care Provider] - 1-2 days Time of Disposition: 14:40
[2021-07-16 13:35] LABS: Basophils # (A) 0.1 k/uL (0-0.2); Basophils % (A) 1 %; Eosinophils # (A) 0.3 k/uL (0-0.7); Eosinophils % (A) 4 %; HCT 42.8 % (34.0-46.0); HGB 14.6 gm/dL (11.4-16.0); Lymphocytes # (A) 2.6 k/uL (1.0-4.8); Lymphocytes % (A) 32 %; MCH 29.7 pg (25.0-35.0); MCHC 34.1 g/dL (31.0-37.0); MCV 87.2 fL (80.0-100.0); Mean Platelet Volume 7.7; Monocytes # (A) 0.3 k/uL (0-1.0); Monocytes % (A) 4 %; Neutrophils # (A) 4.8 k/uL (1.3-7.7); Neutrophils % (A) 59 %; Platelet Count 343 k/uL (150-450); RBC 4.91 m/uL (3.80-5.40); RDW 13.4 % (11.5-15.5); WBC 8.3 k/uL (3.8-10.6)
[2021-07-16 13:46] LABS: INR 0.9 (<1.2); Partial Thromboplastin Time 22.4 sec (22.0-30.0); Prothrombin Time 9.9 sec (9.0-12.0)
--- NOTE | 2021-07-16 13:48 | XR ---
EXAMINATION TYPE: XR chest 2V DATE OF EXAM: 07/16/2021 COMPARISON: 02/01/21 HISTORY: Shortness of breath TECHNIQUE: Frontal and lateral views of the chest are obtained. FINDINGS: Scattered senescent parenchymal changes noted. No evidence for infiltrate. No evidence for atelectasis. Heart size is stable. Mediastinal structures are stable and grossly unremarkable. No evidence for hilar prominence. Degenerative changes dorsal spine. IMPRESSION: 1. No evidence for acute pulmonary disease.
[2021-07-16 13:53] LABS: ALT 30 U/L (4-34); AST 34 U/L (14-36); African American GFR (CKD) >90 (>60 ml/min/1.73 sqM); Albumin 4.2 g/dL (3.5-5.0); Alkaline Phosphatase 93 U/L (38-126); Anion Gap 9 mmol/L; Blood Urea Nitrogen 8 mg/dL (7-17); Calcium 9.3 mg/dL (8.4-10.2); Carbon Dioxide 24 mmol/L (22-30); Chloride 105 mmol/L (98-107); Glucose 122 mg/dL (74-99); Magnesium 2.2 mg/dL (1.6-2.3); Non-African American GFR(CKD) >90 (>60 ml/min/1.73 sqM); Sodium 138 mmol/L (137-145); Total Bilirubin 0.5 mg/dL (0.2-1.3); Total Protein 7.2 g/dL (6.3-8.2)
[2021-07-16] MEDS ORDERED: NITROGLYCERIN SL TABS 0.4 MG TAB SUBLINGUAL PRN (14:41)
[2021-07-16] MEDS ORDERED: ALPRAZolam 0.5 MG TAB PO STA (17:11)
[2021-07-16] MEDS ORDERED: ALBUTEROL NEBULIZED 2.5 MG/3 ML INHALATION PRN (18:03)
[2021-07-16] MEDS ORDERED: LORATADINE 10 MG TAB PO PRN (18:03)
[2021-07-16] MEDS ORDERED: FLUTICASONE 50MCG/SPRAY NASAL 16GM EA NOSTRIL PRN (18:03)
[2021-07-16] MEDS ORDERED: ALPRAZolam 0.5 MG TAB PO PRN (18:03)
[2021-07-16] MEDS: NITROGLYCERIN OINT 1 INCH/GM PACKET TOPICAL SCH (19:08)
[2021-07-16] MEDS ORDERED: ZOLPIDEM 10 MG TAB PO SCH (21:00)
[2021-07-16] MEDS ORDERED: VENLAFAXINE HCL ER 150 MG CAP PO SCH (21:00)
[2021-07-16] MEDS ORDERED: CYCLOBENZAPRINE 10 MG TAB PO SCH (21:00)
[2021-07-16] MEDS: MECLIZINE 12.5 MG TAB PO SCH (22:20)
[2021-07-16] MEDS: ALPRAZolam 0.5 MG TAB PO SCH (22:22)
[2021-07-17] MEDS: NITROGLYCERIN OINT 1 INCH/GM PACKET TOPICAL SCH ×2 (01:10→03:31)
--- NOTE | 2021-07-17 07:21 | P.HPIM ---
History of Present Illness H&P Date: 07/17/21 Chief Complaint: Chest pain 61-year-old female with significant medical history of asthma, obesity, depression, anxiety, seasonal ALLERGIES, and former nicotine dependence was admitted to the hospital for chest pain ACS rule out. Patient stated on 07/16/2021 she woke up in the morning with chest discomfort between 3 AM and 4 AM with associated mild neck pain, shortness of breath and nausea for duration of 45 minutes to an hour. Patient was seen in the office and continued to have chest discomfort prior to being sent to the emergency department for further evaluation of chest discomfort rule out ACS. Patient continued to have chest discomfort during emergency room visit, patient stated chest discomfort was reduced with nitroglycerin. Patient has mild to moderate family history of heart disease. Cardiology was consulted for chest pain ACS rule out. 07/17/2021 Patient seen and examined at bedside. Patient resting comfortably in bed. Patient had an overt episode of chest discomfort at 3 AM, lasting for 20-30 minutes. Patient denied any associated symptoms with chest discomfort. Patient continues to endorse mild intermittent chest discomfort. Patient denies fever or chills, shortness of breath, abdominal pain nausea or vomiting at this time. Vital signs and diagnostic testing reviewed. Patient no acute signs of distress. Review of Systems Constitutional: Reports as per HPI Ears, nose, mouth and throat: Reports as per HPI Cardiovascular: Reports chest pain Respiratory: Reports as per HPI Gastrointestinal: Reports as per HPI Genitourinary: Reports as per HPI Musculoskeletal: Reports as per HPI Integumentary: Reports as per HPI Neurological: Reports as per HPI Psychiatric: Reports anxiety Endocrine: Reports as per HPI Hematologic/Lymphatic: Reports as per HPI Allergic/Immunologic: Reports as per HPI Past Medical History Past Medical History: No Reported History, Asthma, Chest Pain / Angina Additional Past Medical History / Comment(s): CURRENT: LEFT LOWER ABD PAIN. Restless leg syndrome. States seasonal asthma with a rescue inhaler available PRN History of Any Multi-Drug Resistant Organisms: None Reported Past Surgical History: Section, Cholecystectomy Past Anesthesia/Blood Transfusion Reactions: Motion Sickness Past Psychological History: Anxiety, Depression Smoking Status: Former smoker Past Alcohol Use History: None Reported Additional Past Alcohol Use History / Comment(s): QUIT SMOKING 20 YRS, 15YRS, 1 PPD. Past Drug Use History: None Reported Medications and Allergies Home Medications Medication Instructions Recorded Confirmed Type Venlafaxine HCl [Effexor XR] 150 mg PO HS 08/10/16 07/16/21 History ALPRAZolam [Xanax] 0.5 mg PO BID 02/01/21 07/16/21 History Albuterol Sulfate [Ventolin HFA] 2 puff INHALATION RT-Q6H PRN 02/01/21 07/16/21 History Cyclobenzaprine [Flexeril] 20 mg PO HS 02/01/21 07/16/21 History Zolpidem [Ambien] 10 mg PO HS 02/01/21 07/16/21 History rOPINIRole HCL [Requip] 1 mg PO HS 02/01/21 07/16/21 History ALPRAZolam [Xanax] 0.5 mg PO PC-LUNCH PRN 07/16/21 07/16/21 History Benzonatate [Tessalon Perles] 100 mg PO TID PRN 07/16/21 07/16/21 History Cetirizine HCl [Zyrtec] 10 mg PO HS PRN 07/16/21 07/16/21 History Cholecalciferol [Vitamin D3 (25 25 mcg PO DAILY 07/16/21 07/16/21 History Mcg = 1000 Iu)] Cyanocobalamin (Vitamin B-12) 1,000 mcg PO DAILY 07/16/21 07/16/21 History [Vitamin B-12] Fluticasone Nasal [place] [Flonase 1 spray EA NOSTRIL DAILY PRN 07/16/21 07/16/21 History Nasal [place]] Garlic 1 tab PO DAILY 07/16/21 07/16/21 History Magnesium 250 mg PO DAILY 07/16/21 07/16/21 History Meclizine HCl 12.5 mg PO QID 07/16/21 07/16/21 History Multivit with Calcium,Iron,Min 1 tab PO DAILY 07/16/21 07/16/21 History [Women's Multivitamin] Vitamin C/Biotin [Hair, Skin and 1 tab PO DAILY 07/16/21 07/16/21 History Nails Chew] Allergies Allergy/AdvReac Type Severity Reaction Status Date / Time No Known Allergies Allergy Verified 07/16/21 14:13 Physical Exam Vitals: Vital Signs Temp Pulse Pulse Resp BP BP Pulse Ox 07/17/21 01:03 97.8 F 87 18 162/74 99 07/16/21 21:47 98.4 F 82 18 174/80 98 07/16/21 21:00 97.4 F L 82 18 152/81 96 07/16/21 18:00 86 16 124/88 97 07/16/21 17:00 85 16 141/76 96 07/16/21 16:00 77 16 133/71 95 07/16/21 15:00 77 16 136/75 95 07/16/21 14:00 78 16 95 07/16/21 13:17 78 16 148/98 95 07/16/21 11:48 98.2 F 90 18 126/77 97 Intake and Output 07/16/21 07/17/21 07/17/21 22:59 06:59 14:59 Other: Voiding Method Toilet # Voids 0 # Bowel Movements 0 Weight 100.244 kg - Constitutional General appearance: cooperative, no acute distress - EENT Eyes: EOMI, PERRLA ENT: normal oropharynx Ears: bilateral: normal - Neck Neck: normal ROM Carotids: bilateral: upstroke normal Thyroid: bilateral: normal size - Respiratory Respiratory: bilateral: CTA (Anterior and posterior lung guy) - Cardiovascular Normal sinus rhythm Heart rate: 74 Rhythm: regular Heart sounds: normal: S1, S2 radial pulse Peripheral Pulses: bilateral: Normal dorsalis pedis Peripheral Pulses: bilateral: Normal - Gastrointestinal General gastrointestinal: normal bowel sounds - Integumentary Integumentary: normal turgor - Neurologic Neurologic: CNII-XII intact - Musculoskeletal Musculoskeletal: gait normal - Psychiatric Psychiatric: A&O x's 3, appropriate affect, intact judgment & insight Results CBC & Chem 7: 07/16/21 13:17 07/16/21 13:17 Labs: Abnormal Lab Results - Last 24 Hours (Table) 07/16/21 Range/Units 13:17 Glucose 122 H (74-99) mg/dL Chest x-ray: report reviewed Thrombosis Risk Factor Assmnt - Choose All That Apply Each Factor Represents 1 point: Obesity (BMI >25) Each Risk Factor Represents 2 Points: Age 61-74 years Thrombosis Risk Factor Assessment Total Risk Factor Score: 3 Thrombosis Risk Factor Assessment Level: Moderate Risk Assessment and Plan Assessment: Chest pain, ACS rule out Asthma Obesity with a BMI of 37.9 Anxiety Depression Seasonal ALLERGIES Full code Plan: Chest pain ACS rule out, troponins negative 3, no 12-lead EKG changes; consultation with cardiology for expert opinion Continue home medications Continue to monitor vital signs and diagnostic testing Awaiting on cardiology for treatment plan regarding chest pain Further recommendations to come based on patient's clinical condition Time with Patient: Greater than 30
[2021-07-17 08:05] VITALS: TEMP 98.1
[2021-07-17] MEDS: MECLIZINE 12.5 MG TAB PO SCH ×3 (08:24→16:53)
[2021-07-17] MEDS: ALPRAZolam 0.5 MG TAB PO SCH ×2 (08:30→16:51)
[2021-07-17] MEDS: ASPIRIN 81 MG PO SCH ×2 (08:30→16:52)
[2021-07-17] MEDS ORDERED: ASPIRIN 325 MG TAB PO SCH (09:00)
[2021-07-17] MEDS ORDERED: MULTIVITAMINS, THERA 1 EACH TAB PO SCH (09:00)
[2021-07-17] MEDS ORDERED: MAGNESIUM OXIDE 400 MG TAB PO SCH (09:00)
[2021-07-17] MEDS ORDERED: NON FORMULARY DRUG (Vitamin C/Biotin [Hair, Skin And Nails Chew] 1 EACH Tablet) PO SCH (09:00)
[2021-07-17] MEDS ORDERED: CYANOCOBALAMIN 500 MCG TAB PO SCH (09:00)
[2021-07-17] MEDS ORDERED: CHOLECALCIFEROL 25 MCG (1000 IU) TABLET PO SCH (09:00)
[2021-07-17] MEDS ORDERED: NON FORMULARY DRUG (Garlic [Garlic] 1 EACH Tablet) PO SCH (09:00)
--- NOTE | 2021-07-17 10:56 | CONS ---
CONSULTATION Ms. Stevens is a 61-year-old female who was admitted to the hospital with symptoms of chest discomfort. She recently was on antibiotics because of upper respiratory infection. She woke up on Friday morning with chest discomfort that persisted, was seen in Dr. Hopper's office yesterday and was sent to the emergency room. The discomfort is at rest, not activity-related and not associated with any other symptoms. She is average in her exercise tolerance but has no exertional chest discomfort. Her breathing is stable. She denies any dizziness or palpitations. She denies any PND, orthopnea or peripheral edema. She underwent a stress test about a year ago. She has no history of documented coronary artery disease. Her coronary risk factors are negative for hypertension or hyperlipidemia. She is nondiabetic. She stopped smoking 30 years ago. Her medications include Xanax, Effexor, Ventolin, Requip, Flexeril, Flonase. REVIEW OF SYSTEMS: RESPIRATORY SYSTEM: She has no documented history of recent chronic obstructive lung disease. She has seasonal asthma. She had recent upper respiratory infection. GI SYSTEM: No recent GI bleeding. No peptic ulcer disease. SYSTEM: No dysuria or hematuria. NERVOUS SYSTEM: No history of stroke or seizure. PHYSICAL EXAMINATION: This is a 61-year-old female, alert, oriented, in no apparent distress. Blood pressure running in the 120s to 160s with a heart rate in the 70s. HEAD: Normocephalic. Eyes: Sclerae anicteric. NECK: Good carotid upstroke. No bruit. No jugular venous distention. LUNGS: Clear to auscultation. HEART: Regular rate and rhythm. S1, S2. No S3, with a systolic murmur at the base. No diastolic murmur. No rub. ABDOMEN: Soft, nontender. Positive bowel sounds. No organomegaly. EXTREMITIES: No edema. Intact distal pulses. LAB DATA: Lab data revealed BUN and creatinine of 8 and 0.57, potassium 4.0, hemoglobin of 14.6. EKG revealed a sinus mechanism, normal axis and intervals with minor nonspecific ST-T wave changes. IMPRESSION: 1. Chest discomfort, atypical for ischemic heart disease, probably noncardiac. 2. Status post recent upper respiratory infection. 3. Elevated blood pressure, not treated in the past. The patient had blood pressure in the hospital down in the 120s and 130s. RECOMMENDATIONS: I will stop her nitro paste. I would recommend proceeding with repeat stress echocardiogram to evaluate her status. Will obtain a transthoracic echo. Depending on the results of testing, further recommendations will be made. Her blood pressure needs to be followed as an outpatient to see if an antihypertensive regimen needs to be added. Thank you for this consult. Will follow with you. BHARAT / ADAM: [id number] /
[2021-07-17 11:34] LABS: Chol/HDL Ratio 4.11; LDL Cholesterol,Calculated 144.6 mg/dL (0.0-131.0); VLDL Calculation 29.4 mg/dL (5.00-40.00)
--- NOTE | 2021-07-17 13:06 | ECHOF ---
Referral Reason:cp MEASUREMENTS -------- HEIGHT: 162.6 cm WEIGHT: 100.2 kg BP: 167/77 RVIDd: 2.7 cm (< 3.3) IVSd: 1.3 cm (0.6 - 1.1) LVIDd: 3.5 cm (3.9 - 5.3) LVPWd: 1.3 cm (0.6 - 1.1) IVSs: 1.7 cm LVIDs: 2.4 cm LVPWs: 1.8 cm LA Diam: 3.4 cm (2.7 - 3.8) LAESV Index (A-L): 15.98 ml/m Ao Diam: 2.9 cm (2.0 - 3.7) AV Cusp: 2.0 cm (1.5 - 2.6) MV EXCURSION: 15.944 mm (> 18.000) MV EF SLOPE: 84 mm/s (70 - 150) EPSS: 0.4 cm MV E Nigel: 0.82 m/s MV DecT: 228 ms MV A Nigel: 0.98 m/s MV E/A Ratio: 0.84 FINDINGS -------- Sinus rhythm. This was a technically adequate study. The left ventricular size is normal. There is mild concentric left ventricular hypertrophy. Overa ll left ventricular systolic function is normal with, an EF between 55 - 60 %. The right ventricle is normal in size. Normal LA size by volume 22+/-6 ml/m2. The right atrial size is normal. Interatrial and interventricular septum intact. The aortic valve is trileaflet, and appears structurally normal. No aortic stenosis or regurgitation. The mitral valve is normal. There is trace mitral regurgitation. The tricuspid valve appears structurally normal. Trace tricuspid regurgitation present. Unable to estimate RVSP due to inadequate TR jet spectral doppler profile. There is no pulmonic regurgitation present. The aortic root size is normal. IVC Not well visulized. There is no pericardial effusion. CONCLUSIONS -------- 1. There is mild concentric left ventricular hypertrophy. 2. Overall left ventricular systolic function is normal with, an EF between 55 - 60 %. 3. Normal LA size by volume 22+/-6 ml/m2. 4. The aortic valve is trileaflet, and appears structurally normal. No aortic stenosis or regurgitati on. 5. There is no pericardial effusion. DAMPENER OPERATOR: Jo Domínguez RDCS
[2021-07-17] MEDS ORDERED: LOSARTAN 50 MG TAB PO SCH (14:45)
--- NOTE | 2021-07-17 14:45 | ECHOS ---
STRESS ECHOCARDIOGRAM DATE OF SERVICE: 07/17/21 INDICATIONS: Chest pain BASELINE HEART RATE: 107 BASELINE BLOOD PRESSURE: 187/104 MAXIMUM HEART RATE: 148 MAXIMUM BLOOD PRESSURE: 250/100 85% MPHR: 133 100% MPHR: 157 METS: 7.9 MAXIMUM STAGE REACHED: 3 TOTAL EXERCISE TIME: 8 min RESULTS: Baseline rhythm is sinus mechanism, rate of 107, normal axis and intervals. Nonspecific ST-T wave changes. Baseline blood pressure 187/104 mmHg. Patient exercised on Thai protocol for 8 minutes reaching peak rate 148 beats per minute which is equal to 94% maximum predicted heart rate. Peak blood pressure 250/100 mmHg. Test was terminated secondary to fatigue. There was no chest pain. Electrocardiograph monitoring revealed no evidence of diagnostic ischemic ST deviation. FINDINGS: Baseline echocardiogram revealed normal wall motion. At peak exercise, there was normal wall motion augmentation with no hypokinesis or dyskinesis. CONCLUSION: 1. Average exercise tolerance with nondiagnostic electrocardiograph stress testing secondary to baseline EKG abnormality. 2. Hypertensive response to exercise. 3. Normal stress echocardiogram with no evidence of stress-induced ischemia. MMODL / IJN: [id number] / MTDD
[2021-07-17 18:05] VITALS: BP 146/83; PULSE 97; RESP 14
--- NOTE | 2021-07-17 18:21 | P.DS ---
Providers Date of admission: 07/16/21 14:41 Expected date of discharge: 07/17/21 Attending physician: Pradip Hopper Consults: 07/16/21 14:41 Consult Physician Urgent Consulting Provider: [facility] Consult Reason/Comments: Chest pain Do you want consulting provider notified?: Yes Primary care physician: Pradip Hopper Hospital Course: 61-year-old female with significant medical history of asthma, obesity, depression, anxiety, seasonal ALLERGIES, and former nicotine dependence was admitted to the hospital for chest pain ACS rule out. Patient stated on 07/16/2021 she woke up in the morning with chest discomfort between 3 AM and 4 AM with associated mild neck pain, shortness of breath and nausea for duration of 45 minutes to an hour. Patient was seen in the office and continued to have chest discomfort prior to being sent to the emergency department for further evaluation of chest discomfort rule out ACS. Patient continued to have chest discomfort during emergency room visit, patient stated chest discomfort was reduced with nitroglycerin. Patient has mild to moderate family history of heart disease. Patient was evaluated by cardiology, stress test and echo were ordered no acute processes noted on stress test or echocardiogram. Patient was cleared by cardiology for acute coronary syndrome. Patient had episodes of hypertension during hospital stay will be initiated on Cozaar 50 mg by mouth daily. She will be discharged in stable condition with guarded prognosis due to multiple comorbidities Assessment: Chest pain, ACS rule out Asthma Hypertension Obesity with a BMI of 37.9 Anxiety Depression Seasonal ALLERGIES Full code Final diagnoses Atypical chest pain acute coronary syndrome ruled out Hypertensive episodes, initiated on Cozaar 50 mg by mouth daily Health Concerns: None noted Pertinent Studies: Chest x-ray Echocardiogram Stress tests The dictation from radiology and cardiology regarding imaging studies Procedures: None performed during hospital stay Patient Condition at Discharge: Stable Plan - Discharge Summary Discharge Rx Participant: No New Discharge Prescriptions: New Losartan [Cozaar] 50 mg PO DAILY #30 tab Continue Venlafaxine HCl [Effexor XR] 150 mg PO HS Cyclobenzaprine [Flexeril] 20 mg PO HS Albuterol Sulfate [Ventolin HFA] 2 puff INHALATION RT-Q6H PRN PRN Reason: Shortness Of Breath rOPINIRole HCL [Requip] 1 mg PO HS Vitamin C/Biotin [Hair, Skin and Nails Chew] 1 tab PO DAILY Cyanocobalamin (Vitamin B-12) [Vitamin B-12] 1,000 mcg PO DAILY Cholecalciferol [Vitamin D3 (25 Mcg = 1000 Iu)] 25 mcg PO DAILY Cetirizine HCl [Zyrtec] 10 mg PO HS PRN PRN Reason: Allergy Symptoms Zolpidem [Ambien] 10 mg PO HS ALPRAZolam [Xanax] 0.5 mg PO BID Meclizine HCl 12.5 mg PO QID ALPRAZolam [Xanax] 0.5 mg PO PC-LUNCH PRN PRN Reason: Anxiety Magnesium 250 mg PO DAILY Multivit with Calcium,Iron,Min [Women's Multivitamin] 1 tab PO DAILY Fluticasone Nasal [place] [Flonase Nasal [place]] 1 spray EA NOSTRIL DAILY PRN PRN Reason: Allergy Symptoms Garlic 1 tab PO DAILY Discontinued Benzonatate [Tessalon Perles] 100 mg PO TID PRN PRN Reason: Cough Discharge Medication List Venlafaxine HCl [Effexor XR] 150 mg PO HS 08/10/16 [History] ALPRAZolam [Xanax] 0.5 mg PO BID 02/01/21 [History] Albuterol Sulfate [Ventolin HFA] 2 puff INHALATION RT-Q6H PRN 02/01/21 [History] Cyclobenzaprine [Flexeril] 20 mg PO HS 02/01/21 [History] Zolpidem [Ambien] 10 mg PO HS 02/01/21 [History] rOPINIRole HCL [Requip] 1 mg PO HS 02/01/21 [History] ALPRAZolam [Xanax] 0.5 mg PO PC-LUNCH PRN 07/16/21 [History] Cetirizine HCl [Zyrtec] 10 mg PO HS PRN 07/16/21 [History] Cholecalciferol [Vitamin D3 (25 Mcg = 1000 Iu)] 25 mcg PO DAILY 07/16/21 [History] Cyanocobalamin (Vitamin B-12) [Vitamin B-12] 1,000 mcg PO DAILY 07/16/21 [History] Fluticasone Nasal [place] [Flonase Nasal [place]] 1 spray EA NOSTRIL DAILY PRN 07/16/21 [History] Garlic 1 tab PO DAILY 07/16/21 [History] Magnesium 250 mg PO DAILY 07/16/21 [History] Meclizine HCl 12.5 mg PO QID 07/16/21 [History] Multivit with Calcium,Iron,Min [Women's Multivitamin] 1 tab PO DAILY 07/16/21 [History] Vitamin C/Biotin [Hair, Skin and Nails Chew] 1 tab PO DAILY 07/16/21 [History] Losartan [Cozaar] 50 mg PO DAILY #30 tab 07/17/21 [Rx] Follow up Appointment(s)/Referral(s): Pradip Hopper MD [Primary Care Provider] - 1-2 days Katja Pack MD [STAFF PHYSICIAN] - 2 Weeks Patient Instructions/Handouts: Chest Pain (DC), Hypertension (DC) Discharge Disposition: HOME SELF-CARE
== END 2021-07-17 18:45 | disposition home or self-care (01) ==
LOC: EC 11:31 → 1SOBS 14:41 → 6NMEDSUR 17:18
PROVIDERS: ADMIT Family Medicine; ATTEND Family Medicine
DX: R07.89 Other chest pain (principal); I10 Essential (primary) hypertension; J45.998 Other asthma; G25.81 Restless legs syndrome; F32.9 Major depressive disorder, single episode, unspecified; F41.9 Anxiety disorder, unspecified; J30.2 Other seasonal allergic rhinitis; M54.2 Cervicalgia; R11.0 Nausea; E66.9 Obesity, unspecified; Z68.37 Body mass index [BMI] 37.0-37.9, adult; Z20.822 Contact with and (suspected) exposure to COVID-19; Z79.899 Other long term (current) drug therapy; Z90.49 Acquired absence of other specified parts of digestive tract; Z98.891 History of uterine scar from previous surgery; Z87.891 Personal history of nicotine dependence; Z82.49 Family history of ischemic heart disease and other diseases of the circulatory system
CPT/HCPCS: 93306; 99285; 36415; 94640; 94760; 93005; 93351; 80061; 80053; 83735; 84484; 85025; 85610; 85730; 87635; 71046; G0378 ×3

== ENCOUNTER → 2022-02-18 | Outpatient (CLI) | payer BC ==
--- NOTE | 2022-02-18 14:11 | MM ---
Reason for exam: follow-up at short interval from prior study. Last mammogram was performed 10 months ago. History: Patient is postmenopausal and history of other cancer. US discontinued breast core RT of the right breast, August 22, 2016. Took estrogen for 9 years 1 month beginning at age 40. Took progesterone for 9 years 1 month beginning at age 40. Physical Findings: A clinical breast exam by your physician is recommended on an annual basis and results should be correlated with mammographic findings. MG 3D Diag Mammo W/Cad ANNA Bilateral CC and MLO view(s) were taken. Prior study comparison: March 29, 2021, bilateral MG 3d screening mammo w/cad. October 13, 2019, bilateral MG 3d screening mammo w/cad. June 23, 2018, bilateral MG 3d screening mammo w/cad. There are scattered fibroglandular densities. There is chronic nodularity bilaterally. No significant new findings when compared with previous films. Results were given to the patient verbally at the time of the exam. ASSESSMENT: Benign, BI-RAD 2 RECOMMENDATION: Routine screening mammogram of both breasts in 1 year.
== END | disposition home or self-care (01) ==
LOC: RADMAMWWP 12:57
PROVIDERS: ATTEND Family Medicine
DX: R92.8 Other abnormal and inconclusive findings on diagnostic imaging of breast (principal); Z78.0 Asymptomatic menopausal state
CPT/HCPCS: 77062; 77066

== ENCOUNTER → 2022-02-28 | Outpatient (CLI) | payer BC ==
--- NOTE | 2022-02-28 10:47 | FL ---
EXAMINATION TYPE: FL barium swallow DATE OF EXAM: 02/28/2022 CLINICAL HISTORY: Dysphasia. Difficulty swallowing. Feels like food getting stuck in proximal throat. History of reflux with improved symptoms on antireflux medication over last 6 months. TECHNIQUE: A double contrast esophagram is performed utilizing air and barium. A total of 26 second s of fluoroscopic time was utilized during procedure and 43 images obtained COMPARISON: None FINDINGS: The esophagus shows satisfactory motility and emptying into the stomach on upright drinking . No diverticulum. No evidence of fixed hiatal hernia or stricture noted. No significant gastroesopha geal reflux was seen during real time performance of this study. IMPRESSION: No obvious mass or stricture. Unremarkable study.
== END | disposition home or self-care (01) ==
LOC: RADUSWWP 09:46
PROVIDERS: ATTEND Otolaryngology
DX: R13.10 Dysphagia, unspecified (principal); R47.02 Dysphasia
CPT/HCPCS: 74220

== ENCOUNTER → 2022-03-07 | Outpatient (CLI) | payer BC ==
--- NOTE | 2022-03-08 05:26 | XR ---
EXAMINATION TYPE: XR lumbar spine 2 or 3V DATE OF EXAM: 03/07/2022 COMPARISON: X-ray dated 09/09/2012 INDICATION: Low back pain. TECHNIQUE: Standard 3 views of the lumbar spine. FINDINGS: Minimal retrolisthesis of L2 over L3. No definite vertebral body collapse or acute displaced fracture . Degenerative changes of the lumbar spine with multilevel opposing endplate osteophytosis and multil evel disc degeneration. 18 mm density superimposed on L4 vertebral body, possibly artifactual or representing a sclerotic foc us, suboptimally assessed by this x-ray. This wasn't appreciated previously. Further CT/MRI assessmen t can be considered. Suspected bilateral L4-5 and L5-S1 facet osteoarthropathy, more on the left side. Densities seen with in the colon likely related to the recent barium study. Cholecystectomy clips. IMPRESSION: Degenerative changes of the lumbar spine and other incidental findings as described above. Further CT scan/MRI assessment can be considered if clinically required.
== END | disposition home or self-care (01) ==
LOC: RADXRMAIN 14:17
PROVIDERS: ATTEND Family Medicine
DX: M47.816 Spondylosis without myelopathy or radiculopathy, lumbar region (principal); M51.36 Other intervertebral disc degeneration, lumbar region; Z90.49 Acquired absence of other specified parts of digestive tract
CPT/HCPCS: 72100

== ENCOUNTER → 2022-03-23 | Outpatient (CLI) | payer BC ==
--- NOTE | 2022-03-23 17:33 | MR ---
EXAMINATION TYPE: MR lumbar spine wo con DATE OF EXAM: 03/23/2022 COMPARISON: None HISTORY: Low back pain that radiates down both legs. Multiplanar multiecho imaging of the lumbar spine without contrast. Lumbar vertebrae have normal alignment. Posterior elements are intact. Disc spaces are fairly normal. No compression fracture. Sacroiliac joints are intact. No focal bone destruction. No evidence of lum bar spinal stenosis. There is small posterior disc bulge at T12-L1. The lumbar neural foramina are fa irly well maintained. No lumbar paraspinal mass. The visualized sacroiliac joints are intact. IMPRESSION: No significant abnormality of the lumbar spine. There is some minor degenerative disc narrowing at L4 -5. No spinal stenosis.
== END | disposition home or self-care (01) ==
LOC: RADMRIMAIN 12:36
PROVIDERS: ATTEND Nurse Practitioner Family
DX: M51.36 Other intervertebral disc degeneration, lumbar region (principal)
CPT/HCPCS: 72148

== ENCOUNTER → 2022-07-02 | Outpatient (CLI) | payer BC ==
--- NOTE | 2022-07-04 21:14 | US ---
EXAMINATION TYPE: US kidneys/renal and bladder DATE OF EXAM: 07/03/2022 COMPARISON: NONE CLINICAL HISTORY: R10.9 UNSPECIFIED ABDOMINAL PAIN. On/off right flank pain for 1 month EXAM MEASUREMENTS: Right Kidney: 11.2 x 4.9 x 4.7 cm Left Kidney: 11.5 x 5.9 x 4.9 cm Post Void Residual Volume: 12.3 mL Right Kidney: wnl Left Kidney: wnl Bladder: wnl Bilateral Jets seen: yes Normal Post Void Residual: yes IMPRESSION: Normal renal ultrasound
== END | disposition home or self-care (01) ==
LOC: RADUSWWP 21:50
PROVIDERS: ATTEND Family Medicine
DX: R10.9 Unspecified abdominal pain (principal)
CPT/HCPCS: 76770

== ENCOUNTER → 2023-02-19 | Outpatient (CLI) | payer BC ==
--- NOTE | 2023-02-20 09:03 | MM ---
Reason for Exam: Screening (asymptomatic). Last screening mammogram was performed 12 month(s) ago. Patient History: Menarche at age 11. First Full-Term at age 21. Postmenopausal. Other cancer. Estrogen for 9 years, 1 month, from age 40 until age 55. Progesterone for 9 years, 1 month, from age 40 until age 55. 08/22/2016, US discontinued breast core RT on the right side. Risk Values: Karoline 5 year model risk: 1.4%. NCI Lifetime model risk: 5.8%. Prior Study Comparison: 03/29/2021 Bilateral Screening Mammogram, [facility]. 04/10/2021 Left Diagnostic Mammogram, [facility]. 02/18/2022 Bilateral Diagnostic Mammogram, [facility]. Tissue Density: The breast tissue is heterogeneously dense. This may lower the sensitivity of mammography. Findings: Analyzed By CAD. There is no suspicious group of microcalcifications or new suspicious mass in either breast. Chronic nodularity left breast. Overall Assessment: Benign, BI-RAD 2 Management: Screening Mammogram of both breasts in 1 year. A clinical breast exam by your physician is recommended on an annual basis and results should be correlated with mammographic findings. Electronically signed and approved by: Johny Goldsmith M.D. Radiologis
== END | disposition home or self-care (01) ==
LOC: RADMAMWWP 11:18
PROVIDERS: ATTEND Family Medicine
DX: Z12.31 Encounter for screening mammogram for malignant neoplasm of breast (principal); Z78.0 Asymptomatic menopausal state
CPT/HCPCS: 77063; 77067

== ENCOUNTER 2023-08-22 10:29 | Emergency (ER) | payer BC ==
--- NOTE | 2023-08-22 10:33 | ED ---
General Adult HPI - General Source: RN notes reviewed <Haydee Fofana - Last Filed: 08/22/23 10:31> - General Source: patient, RN notes reviewed Mode of arrival: ambulatory Limitations: no limitations <Pushpa Griffith - Last Filed: 08/22/23 15:50> - General Chief complaint: Extremity Problem,Nontraumatic Stated complaint: anxiety Time Seen by Provider: 08/22/23 10:31 - History of Present Illness Initial comments: 63-year-old female presents to the emergency department from urgent care with a chief complaint of restless legs. She reports that her symptoms started last night and she is unable to sleep. She has had this happen to her once before and it was attributed distress. (Haydee Fofana) Patient states that she has a long-standing history of restless legs and takes Requip, Ambien, Flexeril, and drinks tonic water. This is usually effective, however she had 2 episodes this week where she developed restless leg symptoms in addition to shaking in her upper body. She does not usually experience shaking in the upper body. States that it is also painful. She went to urgent care and was instructed to come here for further evaluation due to the abnormality of her symptoms. She has since started to improve. States that her sister has Tourette's and she is concerned about having this as well. (Pushpa Griffith) - Related Data Home Medications Medication Instructions Recorded Confirmed ALPRAZolam [Xanax] 0.5 mg PO DAILY PRN 02/01/21 08/22/23 Albuterol Sulfate [Ventolin HFA] 2 puff INHALATION RT-Q6H PRN 02/01/21 08/22/23 Cyclobenzaprine [Flexeril] 10 mg PO HS 02/01/21 08/22/23 Zolpidem [Ambien] 10 mg PO HS 02/01/21 08/22/23 rOPINIRole HCL [Requip] 2 mg PO HS 02/01/21 08/22/23 Cetirizine HCl [Zyrtec] 10 mg PO HS 07/16/21 08/22/23 Fluconazole [Diflucan] 100 mg PO DAILY 08/22/23 08/22/23 Levothyroxine Sodium [Synthroid] 50 mcg PO DAILY 08/22/23 08/22/23 Losartan Potassium 100 mg PO DAILY 08/22/23 08/22/23 Pantoprazole [Protonix] 40 mg PO DAILY 08/22/23 08/22/23 Rosuvastatin [Crestor] 10 mg PO DAILY 08/22/23 08/22/23 Venlafaxine HCl [Effexor XR] 75 mg PO HS 08/22/23 08/22/23 Venlafaxine HCl [Effexor XR] 150 mg PO DAILY 08/22/23 08/22/23 Allergies Allergy/AdvReac Type Severity Reaction Status Date / Time No Known Allergies Allergy Verified 08/22/23 14:23 Review of Systems ROS Other: All systems not noted in ROS Statement are negative. <Haydee Fofana - Last Filed: 08/22/23 10:31> ROS Other: All systems not noted in ROS Statement are negative. <Pushpa Griffith - Last Filed: 08/22/23 15:50> ROS Statement: Those systems with pertinent positive or pertinent negative responses have been documented in the HPI. Past Medical History Past Medical History: No Reported History, Asthma, Chest Pain / Angina Additional Past Medical History / Comment(s): CURRENT: LEFT LOWER ABD PAIN. Restless leg syndrome. States seasonal asthma with a rescue inhaler available PRN History of Any Multi-Drug Resistant Organisms: None Reported Past Surgical History: Section, Cholecystectomy Past Anesthesia/Blood Transfusion Reactions: Motion Sickness Past Psychological History: Anxiety, Depression Smoking Status: Former smoker Past Alcohol Use History: None Reported Additional Past Alcohol Use History / Comment(s): QUIT SMOKING 20 YRS, 15YRS, 1 PPD. Past Drug Use History: None Reported <Haydee Fofana - Last Filed: 08/22/23 10:31> General Exam <Haydee Fofana - Last Filed: 08/22/23 10:31> Limitations: no limitations General appearance: alert, in no apparent distress Head exam: Present: atraumatic, normocephalic, normal inspection Respiratory exam: Present: normal lung sounds bilaterally. Absent: respiratory distress, wheezes, rales, rhonchi, stridor Cardiovascular Exam: Present: regular rate, normal rhythm, normal heart sounds. Absent: systolic murmur, diastolic murmur, rubs, gallop, clicks Neurological exam: Present: alert, oriented X3, CN II-XII intact Psychiatric exam: Present: normal affect, normal mood Skin exam: Present: warm, dry, intact, normal color. Absent: rash <Pushpa Griffith - Last Filed: 08/22/23 15:50> - General Exam Comments Initial Comments: Visual Physical Exam Vital signs reviewed General: Well-appearing, nontoxic, no acute distress. Head: Normocephalic, atraumatic Eyes: PERRLA, EOMI ENT: Airway patent Chest: Nonlabored breathing Skin: No visual rash, normal skin tone Neuro: Alert and oriented 3 Musculoskeletal: No gross abnormalities I performed the quick note portion of this exam, verbal signature Haydee Fofana PA-C (Haydee Fofana) Course Vital Signs 08/22/23 08/22/23 10:59 14:48 Temperature 98.2 F 98.9 F Pulse Rate 96 79 Respiratory 20 16 Rate Blood Pressure 135/66 132/60 O2 Sat by Pulse 96 97 Oximetry Medical Decision Making - Lab Data Result diagrams: 08/22/23 13:09 08/22/23 13:09 <Pushpa Griffith - Last Filed: 08/22/23 15:50> - Medical Decision Making This is a 63-year-old female who presents to the emergency department for concerns of restless legs and shaking in the lower and upper half of her body. Was pt. sent in by a medical professional or institution? @ -No Did you speak to anyone other than the patient for history? @ -No Did you review nursing and triage notes? @ -Yes, and I agree, it is accurate with regards to the patient's symptoms. Were old charts reviewed? @ -No Differential Diagnosis? @ -Differential Tremors: Parkinson's Tourette's, restless legs, electrolyte deficiency, anxiety, this is not meant to be an all-inclusive list. EKG interpreted by me (3pts min.)? @ -EKG interpreted by me demonstrating the following: Sinus rhythm. Ventricular rate 84 beats per minute, SD interval 158 ms, QRS duration 84 ms, QTC 437 ms. X-rays interpreted by me (1pt min.)? @ -Not obtained CT interpreted by me (1pt min.)? @ -Not obtained U/S interpreted by me (1pt. min.)? @ -Not obtained What testing was considered but not performed? (CT, X-rays, U/S, labs)? Why? @ -None What meds were considered but not given? Why? @ -None Did you discuss the management of the patient with other professionals? @ -No Did you reconcile home meds? @ -No Was smoking cessation discussed for >3mins.? @ -No Was critical care preformed (if so, how long)? @ -No Were there social determinants of health that impacted care today? How? (Homelessness, low income, unemployed, alcoholism, drug addiction, transportation, low edu. Level, literacy, decrease access to med. care, intermediate, rehab)? @ -No Was there de-escalation of care discussed even if they declined? (Discuss DNR or withdrawal of care, Hospice)? @ -No What co-morbidities impacted this encounter? (DM, HTN, Smoking, COPD, CAD, Cancer, CVA, Hep., AIDS, mental health diagnosis, sleep apnea, morbid obesity)? @ -RLS, anxiety Was patient admitted / discharged? @ -Discharged. Lab work obtained and found to be nonactionable. Patient given Valium with resolution of symptoms. Advised that we cannot diagnose Tourette's here and she will need to follow up with her primary care provider. Also discussed with the patient that there are additional options available for restless legs, including Rotigotine patches and Horizant. However, these are newer medications and very expensive. She can discuss these with her primary c are provider and see if they would be appropriate, and if so, they can also discuss prescription savings cards. Patient otherwise discharged home in stable condition. Undiagnosed new problem with uncertain prognosis? @ -None Drug Therapy requiring intensive monitoring for toxicity (Heparin, Nitro, Insulin, Cardizem)? @ -None Were any procedures done? @ -None Diagnosis/symptom? @ -RLS Acute, or Chronic, or Acute on Chronic? @ -Chronic Uncomplicated (without systemic symptoms) or Complicated (systemic symptoms)? @ -Uncomplicated Side effects of treatment? @ -None Exacerbation, Progression, or Severe Exacerbation] @ -Exacerbation Poses a threat to life or bodily function? @ -No Return precautions reviewed in depth, the patient is instructed to return to the emergency department with any new, worsening, or concerning symptoms. Patient verbalized understanding. This case was discussed in detail with the attending ED physician, Dr. Corona. Presentation, findings, and treatment plan discussed in detail as well. (Pushpa Griffith) - Lab Data Lab Results 08/22/23 08/22/23 08/22/23 Range/Units 13:09 13:09 13:09 WBC 8.7 (3.8-10.6) k/uL RBC 4.82 (3.80-5.40) m/uL Hgb 14.3 (11.4-16.0) gm/dL Hct 41.6 (34.0-46.0) % MCV 86.3 (80.0-100.0) fL MCH 29.6 (25.0-35.0) pg MCHC 34.3 (31.0-37.0) g/dL RDW 13.4 (11.5-15.5) % Plt Count 299 (150-450) k/uL MPV 7.1 Neutrophils % 64 % Lymphocytes % 26 % Monocytes % 4 % Eosinophils % 4 % Basophils % 1 % Neutrophils # 5.6 (1.3-7.7) k/uL Lymphocytes # 2.2 (1.0-4.8) k/uL Monocytes # 0.4 (0-1.0) k/uL Eosinophils # 0.3 (0-0.7) k/uL Basophils # 0.1 (0-0.2) k/uL Sodium 140 (137-145) mmol/L Potassium 3.9 (3.5-5.1) mmol/L Chloride 105 (98-107) mmol/L Carbon Dioxide 24 (22-30) mmol/L Anion Gap 11 mmol/L BUN 11 (7-17) mg/dL Creatinine 0.61 (0.52-1.04) mg/dL Est GFR (CKD-EPI)AfAm >90 (>60 ml/min/1.73 sqM) Est GFR (CKD-EPI)NonAf >90 (>60 ml/min/1.73 sqM) Glucose 151 H (74-99) mg/dL Calcium 9.4 (8.4-10.2) mg/dL Phosphorus 4.8 H (2.5-4.5) mg/dL Magnesium 2.2 (1.6-2.3) mg/dL Total Bilirubin 0.3 (0.2-1.3) mg/dL AST 31 (14-36) U/L ALT 31 (4-34) U/L Alkaline Phosphatase 124 (38-126) U/L Total Protein 7.3 (6.3-8.2) g/dL Albumin 4.5 (3.5-5.0) g/dL TSH 2.750 (0.465-4.680) mIU/L Influenza Type A (PCR) Not Detected (Not Detectd) Influenza Type B (PCR) Not Detected (Not Detectd) RSV (PCR) Not Detected (Not Detectd) SARS-CoV-2 (PCR) Not Detected (Not Detectd) Disposition <Haydee Fofana - Last Filed: 08/22/23 10:31> Is patient prescribed a controlled substance at d/c from ED?: No <Pushpa Griffith - Last Filed: 08/22/23 15:50> Clinical Impression: RLS (restless legs syndrome) Disposition: HOME SELF-CARE Instructions (If sedation given, give patient instructions): Restless Legs Syndrome (ED) Additional Instructions: Return to the emergency department with any new, worsening, or concerning symptoms. I called in the prescription for Neupro patches to your pharmacy directly. They may have to special order these, as it is a newer medication. It is also not clear if your insurance will cover this, and you may need to discuss a prescription savings card with the pharmacist or go to that medication's website for a prescription savings card. Follow up with your primary care provider in 1-2 days. Referrals: Pradip Hopper MD [Primary Care Provider] - 1-2 days
[2023-08-22 13:16] LABS: Basophils # (A) 0.1 k/uL (0-0.2); Basophils % (A) 1 %; Eosinophils # (A) 0.3 k/uL (0-0.7); Eosinophils % (A) 4 %; HCT 41.6 % (34.0-46.0); HGB 14.3 gm/dL (11.4-16.0); Lymphocytes # (A) 2.2 k/uL (1.0-4.8); Lymphocytes % (A) 26 %; MCH 29.6 pg (25.0-35.0); MCHC 34.3 g/dL (31.0-37.0); MCV 86.3 fL (80.0-100.0); Mean Platelet Volume 7.1; Monocytes # (A) 0.4 k/uL (0-1.0); Monocytes % (A) 4 %; Neutrophils # (A) 5.6 k/uL (1.3-7.7); Neutrophils % (A) 64 %; Platelet Count 299 k/uL (150-450); RBC 4.82 m/uL (3.80-5.40); RDW 13.4 % (11.5-15.5); WBC 8.7 k/uL (3.8-10.6)
[2023-08-22 13:25] LABS: ALT 31 U/L (4-34); AST 31 U/L (14-36); African American GFR (CKD) >90 (>60 ml/min/1.73 sqM); Albumin 4.5 g/dL (3.5-5.0); Alkaline Phosphatase 124 U/L (38-126); Anion Gap 11 mmol/L; Blood Urea Nitrogen 11 mg/dL (7-17); Calcium 9.4 mg/dL (8.4-10.2); Carbon Dioxide 24 mmol/L (22-30); Chloride 105 mmol/L (98-107); Glucose 151 mg/dL (74-99); Magnesium 2.2 mg/dL (1.6-2.3); Non-African American GFR(CKD) >90 (>60 ml/min/1.73 sqM); Phosphorus 4.8 mg/dL (2.5-4.5); Potassium 3.9 mmol/L (3.5-5.1); Sodium 140 mmol/L (137-145); Total Bilirubin 0.3 mg/dL (0.2-1.3); Total Protein 7.3 g/dL (6.3-8.2)
[2023-08-22 15:22] VITALS: RESP 16
[2023-08-22 18:18] VITALS: BP 135/62; PULSE 76; TEMP 98.7
== END 2023-08-22 16:15 | disposition home or self-care (01) ==
LOC: EC 10:29
DX: G25.81 Restless legs syndrome (principal); J45.909 Unspecified asthma, uncomplicated; F41.9 Anxiety disorder, unspecified; F32.A Depression, unspecified; Z87.891 Personal history of nicotine dependence; Z79.899 Other long term (current) drug therapy; Z20.822 Contact with and (suspected) exposure to COVID-19
CPT/HCPCS: 93005; 80053; 84443; 83735; 84100; 85025; 87636; 99284; 96374; J3360; 36415

== ENCOUNTER → 2024-02-25 | Outpatient (CLI) | payer BC ==
--- NOTE | 2024-02-26 11:55 | BD ---
EXAMINATION TYPE: Axial Bone Density DATE OF EXAM: 02/25/2024 CLINICAL HISTORY: 63 years old Female. ICD-10 CODE: Z78.0 ASYMPTOMATIC MENOPAUSAL STA Height: 5 ft 4in Weight: 236 FRAX RISK QUESTIONS: Alcohol (3 or more units per day): no Family History (Parent hip fracture): no Glucocorticoids (More than 3mos): no (Ex: prednisone, prednisolone, methylprednisolone, dexamethasone, and hydrocortisone). History of Fracture in Adulthood: yes Secondary Osteoporosis: 1. Type 1 Diabetes: no 2. Hyperthyroidism: no 3. Menopause before 45: yes 4. Malnutrition: no 5. Chronic liver disease: no Rheumatoid Arthritis: no Current Tobacco Use: no RISK FACTORS HISTORY OF: Surgery to Spine/Hip(right/left)/Wrist (right/left): no MEDICATIONS: Thyroid Medications: yes Which medication: levothyroxine, How Lon year Osteoporosis Medications: none EXAM MEASUREMENTS: Bone mineral densitometry was performed using the [employer] System. Bone mineral density as measured about the Lumbar spine is: ----- L1-L4(G/cm2): 1.077 T Score Values are as follows: ----- L1: -1.6 ----- L2: -0.3 ----- L3: -0.7 ----- L4: -1.0 ----- L1-L4: -0.9 Z Score Values are as follows: ----- L1: -1.2 ----- L2: 0.1 ----- L3: -0.3 ----- L4: -0.6 ----- L1-L4: -0.4 Bone mineral density has: increased 3.5 % since study of: 2019 Bone mineral density about the R hip (g/cm2): 0.927 Bone mineral density about the L hip (g/cm2): 0.955 T Score values are as follows: -----R Neck: -0.8 -----L Neck: -0.6 -----R Total: 0.9 -----L Total: 1.1 Z Score values are as follows: -----R Neck: -0.1 -----L Neck: 0.1 -----R Total: 1.3 -----L Total: 1.5 Bone mineral density has: increased 3.7 % since study of: 2019 FRAX%s: The graph provided illustrates a 11.4 % chance for a major osteoporotic fx and a 0.7 % chance for the hips probability for fx in 10 years time. IMPRESSION: Osteopenia (T Score between -2.5 and -1). There is slightly increased risk of fracture and the patient may be considered for treatment. Re-Screen 2-5 years. NOTE: T-SCORE=SD OF THE YOUNG ADULT MEAN.
--- NOTE | 2024-02-26 17:54 | MM ---
Reason for Exam: Screening (asymptomatic). Last mammogram was performed 1 year(s) and 1 month(s) ago. Patient History: Menarche at age 11. First Full-Term at age 21. Postmenopausal. Patient has history of breast feeding. Other cancer. Estrogen for 9 years, 1 month, from age 40 until age 55. Progesterone for 9 years, 1 month, from age 40 until age 55. 08/22/2016, discontinued breast core RT on the right side. Risk Values: Karoline 5 year model risk: 1.5%. NCI Lifetime model risk: 5.6%. Prior Study Comparison: 12/04/2016 Right Diagnostic Mammogram, [facility]. 06/19/2017 Bilateral Diagnostic Mammogram, [facility]. 06/23/2018 Bilateral Screening Mammogram, [facility]. 10/13/2019 Bilateral Screening Mammogram, [facility]. 04/10/2021 Left Diagnostic Mammogram, [facility]. 02/18/2022 Bilateral Diagnostic Mammogram, [facility]. 02/19/2023 Bilateral MG 3D screening mammo w/cad, [facility]. Tissue Density: There are scattered areas of fibroglandular density. Findings: Analyzed By CAD. The pattern is symmetrical. There is a rounded circumscribed density in the upper outer anterior right breast may be 1 mm larger than comparison. Short-term follow-up is recommended. Chronic nodularity is present within the left breast. No suspicious groups of microcalcifications, spiculated or lobular masses, architectural distortion or other secondary signs of malignancy are mammographically apparent. Overall Assessment: Probably benign, BI-RAD 3 Management: Diagnostic Mammogram of the right breast in 6 months. A negative mammogram report should not preclude additional follow up of suspicious palpable abnormalities. Patient should continue monthly self breast exam. A clinical breast exam by your physician is recommended on an annual basis and results should be correlated with mammographic findings. Note on Karoline scores and lifetime risk: 1. A Karoline score greater than 3% is considered moderate risk. If this is the case, consider specialist referral to assess eligibility for a risk reducing agent. 2. If overall lifetime risk for the development of breast cancer is 20% or higher, the patient may qualify for future screening with alternating mammogram and breast MRI. Electronically signed and approved by: Marcos Camacho D.O. Radiologis
== END | disposition home or self-care (01) ==
LOC: RADMAMWWP 12:40
PROVIDERS: ATTEND Family Medicine
DX: Z12.31 Encounter for screening mammogram for malignant neoplasm of breast (principal); M85.88 Other specified disorders of bone density and structure, other site; Z78.0 Asymptomatic menopausal state
CPT/HCPCS: 77063; 77067; 77080

== ENCOUNTER → 2024-06-04 | Outpatient (CLI) | payer BC, MEDICARE ==
--- NOTE | 2024-06-25 10:05 | US ---
Patient: Michelle Stevens Ordering Physician: Unknown, Unknown ID: [id number] Phone, Pager: Phone: N/ A Pager: N/A : 1960 Age/Gender: 64Y, O Primary Location: N/A Procedure: US venous doppler dup matilde LE BI Study Date: 06/04/2024 1:57:00 PM EXAMINATION TYPE: US venous doppler duplex LE DATE OF EXAM: 06/19/2024 3:47 PM COMPARISON: NONE CLINICAL INDICATION: Cramping bilaterally. Numbness toes SIDE PERFORMED: Bilateral TECHNIQUE: The lower extremity deep venous system is examined utilizing real time linear array sonog jamir with graded compression, doppler sonography and color-flow sonography. VESSELS IMAGED: Common Femoral Vein Deep Femoral Vein Greater Saphenous Vein * Femoral Vein Popliteal Vein Small Saphenous Vein * Proximal Calf Veins (* superficial vessels) Right Leg: Negative for DVT Left Leg: Negative for DVT Way's cyst left = 3.1 x 0.9 x 2.3 cm IMPRESSION: Grayscale, color doppler, spectral doppler imaging performed of the deep veins of the lo wer extremities. There is normal flow, compressibility, vascular waveforms.
--- NOTE | 2024-06-25 10:05 | US ---
Patient: Michelle Stevens Ordering Physician: Unknown, Unknown ID: [id number] Phone, Pager: Phone: N/ A Pager: N/A : 1960 Age/Gender: 64Y, O Primary Location: N/A Procedure: US arterial LE single level Study Date: 06/04/2024 2:18:00 PM EXAMINATION TYPE: US arterial LE single level DATE OF EXAM: 06/20/2024 9:47 PM CLINICAL INDICATION: Cramping bilateral legs worse on the left 6 months, numbness toes. History of: Previous smoker, hyperlipidemia, hypertension. Doppler Waveforms: Right: Biphasic Left: Biphasic Right Brachial Pressure: 149 Left Brachial Pressure: 150 Ankle-Brachial Indices: Right: 1.29 Left: 1.35 (Vessel hardening > 1.4; Normal 0.9 - 1.4, Moderate 0.7 - 0.9, Severe 0.5-0.7) IMPRESSION: Ankle-brachial indices within normal limits bilaterally.
== END | disposition home or self-care (01) ==
LOC: RADUSWWP 12:00
PROVIDERS: ATTEND Family Medicine
DX: M79.606 Pain in leg, unspecified (principal); R25.2 Cramp and spasm
CPT/HCPCS: 93922; 93970

== ENCOUNTER → 2024-07-22 | Outpatient (CLI) | payer MEDICARE, BC | LOC: LABPRL 13:43 | PROVIDERS: ATTEND Nurse Practitioner Family | DX: R19.7 Diarrhea, unspecified (principal); Z53.9 Procedure and treatment not carried out, unspecified reason ==

== ENCOUNTER → 2024-10-06 | Outpatient (CLI) | payer MEDICARE, BC ==
--- NOTE | 2024-10-06 12:07 | MM ---
Reason for Exam: Follow-up at short interval from prior study. Last screening mammogram was performed 7 month(s) ago. Patient History: Menarche at age 11. First Full-Term at age 21. Postmenopausal. Patient has history of breast feeding. Other cancer. Estrogen for 9 years, 1 month, from age 40 until age 55. Progesterone for 9 years, 1 month, from age 40 until age 55. 08/22/2016, [place] discontinued breast core RT on the right side. Risk Values: Karoline 5 year model risk: 1.5%. NCI Lifetime model risk: 5.4%. Prior Study Comparison: 02/18/2022 Bilateral Diagnostic Mammogram, [facility]. 02/19/2023 Bilateral MG 3D screening mammo w/cad, [facility]. 02/25/2024 Bilateral MG 3D screening mammo w/cad, [facility]. Tissue Density: Right: There are scattered areas of fibroglandular density. Findings: Analyzed By CAD. Pattern is stable. Benign vascular calcifications present. There is a persistent nodular density upper outer right breast on compression. Unilateral view of the study is estimated to measure 0.9 cm located 13 cm. This has enlarged from 2021 additional evaluation with ultrasound is recommended. Overall Assessment: Incomplete: need additional imaging evaluation, BI-RAD 0 Management: Diagnostic Breast Ultrasound of the right breast. A negative mammogram report should not preclude additional follow up of suspicious palpable abnormalities. Patient should continue monthly self breast exam. A clinical breast exam by your physician is recommended on an annual basis and results should be correlated with mammographic findings. Note on Karloine scores and lifetime risk: 1. A Karoline score greater than 3% is considered moderate risk. If this is the case, consider specialist referral to assess eligibility for a risk reducing agent. 2. If overall lifetime risk for the development of breast cancer is 20% or higher, the patient may qualify for future screening with alternating mammogram and breast MRI. [facility], , 10/06/2024 12:01 PM. Electronically signed and approved by: Marcos Camacho D.O. Radiologis
--- NOTE | 2024-10-06 13:18 | USB ---
Reason for Exam: Follow-up at short interval from prior study. Patient History: Menarche at age 11. First Full-Term at age 21. Postmenopausal. Patient has history of breast feeding. Other cancer. Estrogen for 9 years, 1 month, from age 40 until age 55. Progesterone for 9 years, 1 month, from age 40 until age 55. 08/22/2016, US discontinued breast core RT on the right side. Risk Values: Karoline 5 year model risk: 1.5%. NCI Lifetime model risk: 5.4%. Technique: Method: Targeted. Prior Study Comparison: 02/18/2022 Bilateral Diagnostic Mammogram, [facility]. 02/19/2023 Bilateral MG 3D screening mammo w/cad, [facility]. 02/25/2024 Bilateral MG 3D screening mammo w/cad, [facility]. Findings: The upper outer quadrant of the right breast, the axilla of the right breast and the retroareolar of the right breast were scanned. At the 10:00 position 13 18 cm in the nipple, corresponding to the mammographic finding, is a 0.7 x 0.7 x 0.9 cm rounded density described margins. This appears to have a hilum. Findings can be compatible with a lymph node. Note is made of some echogenic areas likely are some small lipomas within the lateral breast. Overall Assessment: Benign, BI-RAD 2 Management: Screening Mammogram of both breasts in 6 months. A clinical breast exam by your physician is recommended on an annual basis and results should be correlated with mammographic findings. This exam should not preclude additional follow-up of suspicious palpable abnormalities. Results were given to the patient verbally at the time of exam. [facility], , 10/06/2024 12:32 PM. Electronically signed and approved by: Marcos Camacho D.O. Radiologis
== END | disposition home or self-care (01) ==
LOC: RADMAMWWP 11:07
PROVIDERS: ATTEND Family Medicine
DX: R92.8 Other abnormal and inconclusive findings on diagnostic imaging of breast (principal); R92.323 Mammographic fibroglandular density, bilateral breasts; Z78.0 Asymptomatic menopausal state
CPT/HCPCS: 77065; 76642; G0279; 77061

== ENCOUNTER 2024-11-08 17:53 | Emergency (ER) | payer MEDICARE, BC ==
[2024-11-08 18:15] VITALS: RESP 18
--- NOTE | 2024-11-08 18:46 | XR ---
EXAMINATION TYPE: XR shoulder complete RT DATE OF EXAM: 11/08/2024 6:41 PM COMPARISON: None CLINICAL INDICATION: Female, 64 years old with history of pain s/p fall ; PHH, pain TECHNIQUE: XR shoulder complete RT; examined in AP, internally rotated and scapular Y projections. FINDINGS: No evidence of acute osseous pathology, joint dislocation, or soft tissue swelling. The remaining po rtions of the visualized chest are unremarkable. IMPRESSION: No acute osseous pathology. [facility], , 11/08/2024 6:44 PM
--- NOTE | 2024-11-08 19:07 | ED ---
General Adult HPI - General Chief complaint: Extremity Injury, Upper Stated complaint: rt shoulder injury, fall Time Seen by Provider: 11/08/24 18:16 Source: patient, RN notes reviewed Mode of arrival: ambulatory Limitations: no limitations - History of Present Illness Initial comments: 64-year-old female presents to the emergency department for evaluation of right shoulder pain following a fall. Patient reports that she took a fall 4 days ago in which she landed on her knees and fell forward into her right shoulder. She states that since then she has had pain in her shoulder, mostly with pulling movements. She also reports difficulty raising her arm above her head because of the pain. She denies any other significant injury. Denies head injury, blood thinners. - Related Data Home Medications Medication Instructions Recorded Confirmed ALPRAZolam [Xanax] 0.5 mg PO DAILY PRN 02/01/21 08/22/23 Albuterol Sulfate [Ventolin HFA] 2 puff INHALATION RT-Q6H PRN 02/01/21 08/22/23 Cyclobenzaprine [Flexeril] 10 mg PO HS 02/01/21 08/22/23 Zolpidem [Ambien] 10 mg PO HS 02/01/21 08/22/23 rOPINIRole HCL [Requip] 2 mg PO HS 02/01/21 08/22/23 Cetirizine HCl [Zyrtec] 10 mg PO HS 07/16/21 08/22/23 Fluconazole [Diflucan] 100 mg PO DAILY 08/22/23 08/22/23 Levothyroxine Sodium [Synthroid] 50 mcg PO DAILY 08/22/23 08/22/23 Losartan Potassium 100 mg PO DAILY 08/22/23 08/22/23 Pantoprazole [Protonix] 40 mg PO DAILY 08/22/23 08/22/23 Rosuvastatin [Crestor] 10 mg PO DAILY 08/22/23 08/22/23 Venlafaxine HCl [Effexor XR] 75 mg PO HS 08/22/23 08/22/23 Venlafaxine HCl [Effexor XR] 150 mg PO DAILY 08/22/23 08/22/23 Allergies Allergy/AdvReac Type Severity Reaction Status Date / Time No Known Allergies Allergy Verified 11/08/24 18:10 Review of Systems ROS Statement: Those systems with pertinent positive or pertinent negative responses have been documented in the HPI. ROS Other: All systems not noted in ROS Statement are negative. Past Medical History Past Medical History: No Reported History, Asthma, Chest Pain / Angina, Hypertension Additional Past Medical History / Comment(s): CURRENT: LEFT LOWER ABD PAIN. Restless leg syndrome. States seasonal asthma with a rescue inhaler available PRN History of Any Multi-Drug Resistant Organisms: None Reported Past Surgical History: Section, Cholecystectomy Past Anesthesia/Blood Transfusion Reactions: Motion Sickness Past Psychological History: Anxiety, Depression Smoking Status: Former smoker Past Alcohol Use History: None Reported Past Drug Use History: None Reported General Exam Limitations: no limitations General appearance: alert, in no apparent distress Head exam: Present: atraumatic, normocephalic, normal inspection Eye exam: Present: normal appearance, PERRL, EOMI. Absent: scleral icterus, conjunctival injection, periorbital swelling Respiratory exam: Present: normal lung sounds bilaterally. Absent: respiratory distress, wheezes, rales, rhonchi, stridor Cardiovascular Exam: Present: regular rate, normal rhythm, normal heart sounds. Absent: systolic murmur, diastolic murmur, rubs, gallop, clicks Extremities exam: Present: tenderness, normal capillary refill, other (Radial pulses 2+ decreased range of motion with flexion of the right shoulder). Absent: full ROM Neurological exam: Present: alert, oriented X3 Psychiatric exam: Present: normal affect, normal mood Skin exam: Present: warm, dry, intact, normal color. Absent: rash Course Vital Signs 11/08/24 11/08/24 18:11 19:20 Temperature 98.1 F 98.6 F Pulse Rate 89 77 Respiratory 18 18 Rate Blood Pressure 108/61 113/73 O2 Sat by Pulse 97 96 Oximetry Medical Decision Making - Medical Decision Making Was pt. sent in by a medical professional or institution (, PA, MECHANICAL FIELD ENGINEER, urgent care, hospital, or [facility]...) When possible be specific @ -No Did you speak to anyone other than the patient for history (EMS, parent, family, police, friend...)? What history was obtained from this source @ -No Did you review nursing and triage notes (agree or disagree)? Why? @ -I reviewed and agree with nursing and triage notes Were old charts reviewed (outside hosp., previous admission, EMS record, old EKG, old radiological studies, urgent care reports/EKG's, [facility] records)? Report findings @ -No old charts were reviewed Differential Diagnosis (chest pain, altered mental status, abdominal pain women, abdominal pain men, vaginal bleeding, weakness, fever, dyspnea, syncope, headache, dizziness, GI bleed, back pain, seizure, CVA, palpatations, mental health, musculoskeletal)? @ -Differential Musculoskeletal Muscular strain, contusion, ligament sprain, fracture, arthritis, septic arthritis, bursitis, cellulitis, muscle spasm, nerve compression, DVT, arterial occlusion, herpes zoster, electrolyte abnormality, tumor.... This is not meant to be in all inclusive list EKG interpreted by me (3pts min.). @ -None X-rays interpreted by me (1pt min.). @ -X-ray of the right shoulder shows no acute osseous abnormality CT interpreted by me (1pt min.). @ -None done U/S interpreted by me (1pt. min.). @ -None done What testing was considered but not performed or refused? (CT, X-rays, U/S, labs)? Why? @ -None What meds were considered but not given or refused? Why? @ -None Did you discuss the management of the patient with other professionals (professionals i.e. , PA, MECHANICAL FIELD ENGINEER, lab, RT, psych nurse, family welfare social work professor, environmental adviser, teacher, physics technical officer, corrections caseworker)? Give summary @ -No Was smoking cessation discussed for >3mins.? @ -No Was critical care preformed (if so, how long)? @ -No Were there social determinants of health that impacted care today? How? (Homelessness, low income, unemployed, alcoholism, drug addiction, transportation, low edu. Level, literacy, decrease access to med. care, senior living, rehab)? @ -No Was there de-escalation of care discussed even if they declined (Discuss DNR or withdrawal of care, Hospice)? DNR status @ -No What co-morbidities impacted this encounter? (DM, HTN, Smoking, COPD, CAD, Cancer, CVA, ARF, Chemo, Hep., AIDS, mental health diagnosis, sleep apnea, morbid obesity)? @ -None Was patient admitted / discharged? Hospital course, mention meds given and route, prescriptions, significant lab abnormalities, going to OR and other pertinent info. @ -Discharge. Patient presented emergency department for evaluation of right shoulder pain following a fall. X-rays obtained revealing no evidence of acute fracture or dislocation. Recommended symptomatic treatment at this time including anti-inflammatories, rest, ice, elevation. Advised follow-up to her PCP. Patient understanding agreeable plan. Patient stable at time of discharge. Case discussed with Dr. Conti Undiagnosed new problem with uncertain prognosis? @ -No Drug Therapy requiring intensive monitoring for toxicity (Heparin, Nitro, Insulin, Cardizem)? @ -No Were any procedures done? @ -No Diagnosis/symptom? @ -Shoulder contusion Acute, or Chronic, or Acute on Chronic? @ -acute Uncomplicated (without systemic symptoms) or Complicated (systemic symptoms)? @ -uncomplicated Side effects of treatment? @ -No Exacerbation, Progression, or Severe Exacerbation? @ -No Poses a threat to life or bodily function? How? (Chest pain, [place], [place], pneumonia, PE, COPD, DKA, ARF, appy, cholecystitis, CVA, Diverticulitis, Homicidal, Suicidal, threat to staff... and all critical care pts) @ -No Disposition Clinical Impression: Shoulder contusion Disposition: HOME SELF-CARE Condition: Stable Instructions (If sedation given, give patient instructions): Shoulder Sprain (ED) Additional Instructions: Utilize symptomatic treatment at this time. Please follow up with your primary care provider. Return to the emergency department for new or worsening symptoms. Is patient prescribed a controlled substance at d/c from ED?: No Referrals: Pradip Hopper MD [Primary Care Provider] - 1-2 days
[2024-11-08 19:21] VITALS: BP 113/73; PULSE 77; TEMP 98.6
== END 2024-11-08 19:21 | disposition home or self-care (01) ==
LOC: EC 17:53
DX: S40.011A Contusion of right shoulder, initial encounter (principal); Z87.891 Personal history of nicotine dependence; W19.XXXA Unspecified fall, initial encounter
CPT/HCPCS: 99283

== ENCOUNTER → 2025-05-17 | Outpatient (CLI) | payer MEDICARE ==
--- NOTE | 2025-05-17 13:58 | MM ---
Reason for Exam: Screening (asymptomatic). Last mammogram was performed 1 year(s) and 2 month(s) ago. Patient History: Menarche at age 11. First Full-Term at age 21. Postmenopausal. Patient has history of breast feeding. Other cancer. Estrogen for 9 years, 1 month, from age 40 until age 55. Progesterone for 9 years, 1 month, from age 40 until age 55. 08/22/2016, discontinued breast core RT on the right side. Risk Values: Karoline 5 year model risk: 1.5%. NCI Lifetime model risk: 5.2%. Prior Study Comparison: 02/19/2023 Bilateral MG 3D screening mammo w/cad, [facility]. 02/25/2024 Bilateral MG 3D screening mammo w/cad, [facility]. 10/06/2024 Right MG 3D diag mammo w/cad RT, [facility]. Tissue Density: The breasts are almost entirely fatty. Findings: Analyzed By CAD. Right breast: Stable benign round mass There is no suspicious group of microcalcifications or new suspicious mass. Left breast: Stable benign round mass There is no suspicious group of microcalcifications or new suspicious mass. Overall Assessment: Benign, BI-RAD 2 Management: Screening Mammogram of both breasts in [address] [facility] will attempt to contact patient to return for supplemental views and ultrasound if indicated. Patient should continue monthly self-breast exams. A clinical breast exam by your physician is recommended on an annual basis. This exam should not preclude additional follow-up of suspicious palpable abnormalities. Note on Karoline scores and lifetime risk: 1. A Karoline score greater than 3% is considered moderate risk. If this is the case, consider specialist referral to assess eligibility for a risk reducing agent. 2. If overall lifetime risk for the development of breast cancer is 20% or higher, the patient may qualify for future screening with alternating mammogram and breast MRI. [facility], , 05/17/2025 1:55 PM. Electronically signed and approved by: Devan Aguilar DO
== END | disposition home or self-care (01) ==
LOC: RADMAMWWP 13:01
PROVIDERS: ATTEND Family Medicine
DX: Z12.31 Encounter for screening mammogram for malignant neoplasm of breast (principal); R92.313 Mammographic fatty tissue density, bilateral breasts; Z78.0 Asymptomatic menopausal state
CPT/HCPCS: 77063; 77067